=== PATIENT | female | born 2000 | race Caucasian/White ===

== ENCOUNTER 2020-10-21 21:25 | Emergency (ER) | payer OTHER, SELFPAY ==
[2020-10-21 21:38] VITALS: BP 134/84; PULSE 98; RESP 20; TEMP 36.7; O2SAT 100
[2020-10-21] MEDS: metroNIDAZOLE 250 MG TABLET 2000 MG PO (22:41)
[2020-10-21] MEDS: AZITHROMYCIN 250 MG TABLET 1000 MG PO (22:41)
[2020-10-21] MEDS: cefTRIAXone 250 MG VIAL IM (22:41)
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
[2020-10-21 23:00] VITALS: BP 133/82; PULSE 94; RESP 17; O2SAT 98
== END 2020-10-21 23:05 | disposition home or self-care (01) ==
LOC: ANHED 23:00
PROVIDERS: Emergency Provider Emergency Medicine
DX: T74.21XA Adult sexual abuse, confirmed, initial encounter (principal); S20.212A Contusion of left front wall of thorax, initial encounter; S80.11XA Contusion of right lower leg, initial encounter; Y07.03 Male partner, perpetrator of maltreatment and neglect
CPT/HCPCS: 96372; 99285; A9270; J0696

== ENCOUNTER 2022-01-31 09:46 | Outpatient (CLI) | payer OTHER, SELFPAY | END 2022-01-31 09:47 | disposition home or self-care (01) | PROVIDERS: Visit Provider Obstetrics & Gynecology Gynecology | DX: O26.841 Uterine size-date discrepancy, first trimester (principal); Z3A.00 Weeks of gestation of pregnancy not specified | CPT/HCPCS: 36415; 84702 ==

== ENCOUNTER 2022-02-02 10:27 | Outpatient (CLI) | payer OTHER, SELFPAY | END 2022-02-02 10:28 | disposition home or self-care (01) | LOC: ANHLAB 10:29 | PROVIDERS: Visit Provider Obstetrics & Gynecology Gynecology | DX: O26.841 Uterine size-date discrepancy, first trimester (principal); Z3A.00 Weeks of gestation of pregnancy not specified | CPT/HCPCS: 36415; 84702 ==

== ENCOUNTER → 2022-02-14 12:40 | Outpatient (CLI) | payer OTHER, SELFPAY ==
--- NOTE | ~2022-02-14 | US_ITS ---
EXAMINATION: US OB transvaginal DATE: 02/14/2022 13:08 INDICATION: Uncertain dates. . TECHNIQUE: Real-time transvaginal pelvic ultrasound was performed. COMPARISON: None. FINDINGS: The uterus measures 7.9 x 4.9 x 5.3 cm. There is an intrauterine gestational sac. A yolk sac is ident ified. The crown rump length measures 7 mm, which correlates with an estimated gestational age of 6 weeks and 4 day(s) (+/-) 4 day(s). heart motion is identified measuring 136 beats per min izzy (bpm) by M-mode Doppler. There is a 1.2 x 0.7 x 2.0 cm subchorionic hematoma. The right ovary oswald sures 3.9 x 3.0 x 3.2 cm. The left ovary measures 3.1 x 1.9 x 2.5 cm. There is physiologic free fluid in the pelvis. IMPRESSION: 1. Single living intrauterine gestation with estimated date of delivery of 10/06/2022. 2. Small subchorionic hematoma. Reviewed, dictated and finalized at location B. IMPRESSION: 1. Single living intrauterine gestation with estimated date of delivery of 10/06. 2. Small subchorionic hematoma.
== END ==
PROVIDERS: Visit Provider Obstetrics & Gynecology Gynecology
DX: Z36.87 Encounter for antenatal screening for uncertain dates (principal); Z3A.00 Weeks of gestation of pregnancy not specified; O46.90 Antepartum hemorrhage, unspecified, unspecified trimester
CPT/HCPCS: 76817

== ENCOUNTER → 2022-02-27 11:42 | Outpatient (CLI) | payer OTHER, SELFPAY ==
--- NOTE | ~2022-02-27 | US_ITS ---
EXAMINATION: US OB transvaginal DATE: 02/27/2022 12:08 INDICATION: Subchorionic hematoma during first trimester TECHNIQUE: Real-time pelvic transabdominal and transvaginal ultrasound was performed. COMPARISON: 02/14/2022 FINDINGS: The uterus measures 8.9 x 6.2 x 6.7 cm. There is an intrauterine gestational sac. No persi stent subchorionic hematoma is identified. A yolk sac is identified. heart motion is identified measuring 180 beats per minute (bpm) by M-mode Doppler. The crown rump length measures 2.0 cm, which correlates with an estimated gestational age of 8 weeks and 4 day(s) (+/-) 5 day(s). The ovaries are not visualized however no adnexal abnormality is seen. There is no free fluid in the pelvis. IMPRESSION: 1. Live intrauterine with an estimated gestational age of 8 weeks and 4 day(s) (+/-) 5 day( s) and an estimated delivery date of 10/05/2022. 2. No subchorionic hematoma identified. Reviewed, dictated and finalized at location A. IMPRESSION: 1. Live intrauterine with an estimated gestational age of 8 weeks and 4 day(s) (+/-) 5 day(s) and an estimated delivery date of 10/05/2022. 2. No subchorionic hematoma identified.
== END ==
PROVIDERS: PCP Obstetrics & Gynecology Gynecology; Visit Provider Obstetrics & Gynecology Gynecology
DX: O36.8910 Maternal care for other specified fetal problems, first trimester, not applicable or unspecified (principal); Z3A.01 Less than 8 weeks gestation of pregnancy
CPT/HCPCS: 76817

== ENCOUNTER 2022-03-29 17:12 | Outpatient (RCR) | payer OTHER, SELFPAY ==
[2022-03-29 17:54] LABS: Basophils Percent Auto 0.3 % (0.2-1.2); Eosinophils Absolute Auto 0.2 K/mm3 (0-0.3); Eosinophils Percent Auto 1.7 % (0-4.4); Hematocrit 35.9 % (37.0-47.0); Hemoglobin 12.7 g/dL (12.0-15.0); Immature Granulocyte Absolute 0.05 K/mm3 (0.00-0.031); Immature Granulocyte Percent A 0.4 % (0-0.5); Lymphocytes Absolute Auto 3.39 K/mm3 (0.9-3.2); Lymphocytes Percent Auto 26.3 % (18.3-44.2); Mean Corpuscular HGB Conc 35.4 g/dl (32-36); Mean Corpuscular Hemoglobin 30.2 pg (26-34); Mean Corpuscular Volume 85.3 fl (80-100); Mean Platelet Volume 10.3 fl (7.4-10.4); Monocytes Absolute Auto 0.8 K/mm3 (0.1-0.6); Monocytes Percent Auto 6.3 % (2.6-8.5); Neutrophils Absolute Auto 8.4 K/mm3 (1.3-6.7); Platelet Count Result 276 k/mm3 (150-375); Red Blood Count 4.21 M/mm3 (4.2-5.4); Red Cell Distribution Width 13.3 % (11.5-14.5); White Blood Count 12.9 K/mm3 (4.5-10.0)
[2022-03-29 18:45] LABS: HIV 1/2 Ab P24 Ag Result Negative (Negative)
[2022-03-29 19:40] LABS: Hepatitis B Surface Antigen Negative (Negative); Rubella IgG Antibody 52.8 IU/ML
[2022-03-29 19:44] LABS: Hepatitis C Virus Antibody Negative (Negative); Vitamin D 25 Hydroxy 37.4 ng/mL
[2022-03-29 21:11] LABS: Hemoglobin A1C 5.1 % (<5.7)
[2022-03-30 15:20] LABS: Rapid Plasma Reagin Non-Reactive (NonReactive)
[2022-03-31 12:58] LABS: Red Blood Cell Folate 566 ng/mL RBC (>280)
== END 2022-06-27 23:59 | disposition home or self-care (01) ==
LOC: ANHLAB 17:12
PROVIDERS: PCP Obstetrics & Gynecology Gynecology; Visit Provider Advanced Practice Midwife
DX: Z11.4 Encounter for screening for human immunodeficiency virus [HIV] (principal)
CPT/HCPCS: 36415; 82306; 82728; 82747; 83036; 85025; 86592; 86703; 86762; 86803; 86850; 86900; 86901; 87340; G0432

== ENCOUNTER → 2022-05-12 15:39 | Outpatient (CLI) | payer OTHER, SELFPAY ==
--- NOTE | ~2022-05-12 | US_ITS ---
EXAMINATION: US OB /maternal detail DATE: 05/12/2022 16:33 INDICATION: survey TECHNIQUE: Multiple obstetric sonographic images performed. FINDINGS: Comparison to multiple prior studies sequentially, with oldest reviewed study dated 022. There is a single living fetus in vertex presentation. The placenta is anterior without placenta pre via. Amniotic fluid volume is subjectively normal. cardiac activity and movement is noted with a heart rate of 154 beats per minute. The following anatomy was identified as normal: 4 chamber heart 3 vessel cord cord insertion kidneys urinary bladder stomach spine diaphragm ventricles cisterna magna cerebellum The following biometric data were obtained: BPD: 49mm corresponds to gestational age 20 weeks 5 days. Head circumference: 174 mm corresponds to gestational age 20 weeks 0 days. Abdominal circumference: 139 mm corresponds to gestational age 19 weeks 2 days. Femur length: 30 mm corresponds to gestational age 19 weeks 3 days. Head circumference to abdominal circumference ratio: 1.26 (normal range for expected gestational age is 1.08-1.26). Estimated weight: 291 grams +/- 44 grams using Hadlock method, 70.6%. IMPRESSION: 1: Single living intrauterine with an estimated gestational age of 19weeks 0days by initial ultrasound measurements, with an EDC of 10/06/2022 in vertex presentation. 2. Normal survey. Reviewed, dictated and finalized at location A. IMPRESSION: 1: Single living intrauterine with an estimated gestational age of 19 weeks 0days by initial ultrasound measurements, with an EDC of 10/06/2022 in ve rtex presentation. 2. Normal survey.
== END ==
PROVIDERS: PCP Advanced Practice Midwife; Visit Provider Advanced Practice Midwife
DX: Z36.9 Encounter for antenatal screening, unspecified (principal); Z3A.19 19 weeks gestation of pregnancy
CPT/HCPCS: 76805

== ENCOUNTER 2022-09-05 19:00 | Observation (INO) | payer OTHER, SELFPAY ==
[2022-09-05 19:22] VITALS: BP 130/79; PULSE 108
[2022-09-05 19:30] VITALS: BP 120/76; PULSE 107
[2022-09-05 19:39] VITALS: BMI 36.5
--- NOTE | 2022-09-05 19:39 | OBADM ---
This patient, Mabel Alanis, admitted to the OB room OB Post [facility] for observation. Patient/family oriented to hospital policies and general routines including ID bracelet, bed and alarms, visiting hours, pain management, procedures, bathroom and other care routines, personal items, smoking policy, room service/diet, and visiting hours. Patient/Family are encouraged to report perceived risks to care and to ask questions if they do not understand what they are told or what they should do.
[2022-09-05 19:45] VITALS: BP 126/74; PULSE 98
[2022-09-05 20:00] VITALS: BP 126/74; PULSE 98
--- NOTE | 2022-09-05 20:11 | PC.NURSE ---
1927- called Dr. Marino- informed of pt admission for c/o vaginal bleeding that started around 1745 tonight. pt had pink/red blood on pad and when wiping. nothing in vagina within the last 24 hours. no contractions noted on tracing/none felt by pt. order to monitor x 1 hour and if no contractions or further bleeding, pt may d/c home with instructions on when to return to L&D.
[2022-09-05 20:15] VITALS: BP 132/71; PULSE 97
--- NOTE | 2022-09-05 20:16 | PC.NURSE ---
2004- called Dr. Marino- shortly after last call contractions noted on tracing. pt does not feel contractions. cervical exam closed and posterior. no blood noted on exam glove. monitor for full hour from admission and if no change and reactive FHT may d/c home with instructions on when to return to L&D.
--- NOTE | 2022-09-11 09:50 | PM.OBTRLD ---
OB - Triage/Final Diagnosis Visit Information Reason for evaluation: other ( vaginal spotting in ) Comments/Additional reasons for admission: I have assessed the risk for this patient, Mabel Alanis, and determined that she would benefit from observation care.
== END 2022-09-05 20:30 | disposition home or self-care (01) ==
PROVIDERS: Admitting Provider Obstetrics & Gynecology Gynecology; Visit Provider Obstetrics & Gynecology Gynecology
DX: O26.853 Spotting complicating pregnancy, third trimester (principal); Z3A.35 35 weeks gestation of pregnancy
CPT/HCPCS: G0378; G0379

== ENCOUNTER 2022-09-13 10:46 | Outpatient (CLI) | payer OTHER, SELFPAY ==
[2022-09-13 11:57] VITALS: BP 140/75
[2022-09-13 12:00] VITALS: BP 137/78; PULSE 109
[2022-09-13 12:01] LABS: Basophils Absolute Auto 0.1 K/mm3 (0.0-0.1); Basophils Percent Auto 0.5 % (0.2-1.2); Eosinophils Absolute Auto 0.2 K/mm3 (0-0.3); Hematocrit 36.7 % (37.0-47.0); Hemoglobin 12.6 g/dL (12.0-15.0); Immature Granulocyte Absolute 0.26 K/mm3 (0.00-0.031); Immature Granulocyte Percent A 1.7 % (0-0.5); Lymphocytes Absolute Auto 2.46 K/mm3 (0.9-3.2); Lymphocytes Percent Auto 15.8 % (18.3-44.2); Mean Corpuscular HGB Conc 34.3 g/dl (32-36); Mean Corpuscular Volume 90.4 fl (80-100); Mean Platelet Volume 10.2 fl (7.4-10.4); Monocytes Absolute Auto 1.3 K/mm3 (0.1-0.6); Neutrophils Absolute Auto 11.4 K/mm3 (1.3-6.7); Platelet Count Result 294 k/mm3 (150-375); Red Blood Count 4.06 M/mm3 (4.2-5.4); Red Cell Distribution Width 13.5 % (11.5-14.5); White Blood Count 15.6 K/mm3 (4.5-10.0)
[2022-09-13 12:16] VITALS: BP 135/69; PULSE 106
[2022-09-13 12:22] LABS: Alanine Aminotransferase 18 U/L (6-35); Albumin Level 3.8 g/dL (3.5-5.1); Alkaline Phosphatase 115 U/L (38-126); Anion Gap 10 mmol/L (8-16); Aspartate Amino Transferase 20 U/L (14-36); Bilirubin,Total 0.3 mg/dL (0.2-1.3); Blood Urea Nitrogen 4 mg/dL (7-17); Calcium 9.5 mg/dL (8.4-10.2); Carbon Dioxide 21 mmol/L (22-30); Chloride 104 mmol/L (98-107); Creatinine Urine 26.7 mg/dL; Estimated Glomerular Filt Rate > 60; Glucose 83 mg/dL (65-110); Potassium 3.7 mmol/L (3.4-5.0); Sodium 135 mmol/L (137-145); Total Protein Urine Random 14 mg/dL; Ur Ttl Prot Creatinine Ratio 0.52 mg/mg (0-0.20); Uric Acid 3.5 mg/dL (2.5-7.5)
[2022-09-13 12:31] VITALS: BP 134/78; PULSE 104
--- NOTE | 2022-09-13 12:46 | PC.NURSE ---
Called Anabel Pagan with lab results. Verbal orders to discharge patient with 24 hour urine test. Patient discharged with supplies. Patient verbalizes understanding and has no questions at this time.
[2022-09-13 12:47] VITALS: BP 140/75
== END 2022-09-13 12:52 | disposition home or self-care (01) ==
LOC: ANHOBOP 11:34 → ANHLDR 11:35
PROVIDERS: Visit Provider Obstetrics & Gynecology Gynecology
DX: O42.90 Premature rupture of membranes, unspecified as to length of time between rupture and onset of labor, unspecified weeks of gestation (principal); Z3A.00 Weeks of gestation of pregnancy not specified
CPT/HCPCS: 36415; 59025; 80053; 82570; 84112; 84156; 84550; 85025; 99199

== ENCOUNTER 2022-09-14 16:48 | Outpatient (CLI) | payer OTHER, SELFPAY ==
[2022-09-14 19:14] LABS: Total Protein Urine Random 19 mg/dL
[2022-09-14 19:26] LABS: Creatinine 24 Hour Urine 1.4 gm/24 (0.8-1.8); Total Protein Urine 24 Hr 646 mg/24hr (28-141); Total Volume 24 Hour Urine 3400 ml
[2022-09-14 19:31] LABS: Specific Gravity Ur 1.011
== END 2022-09-14 16:49 | disposition home or self-care (01) ==
LOC: ANHOBOP 16:58
PROVIDERS: Advanced Practice Midwife; Visit Provider Obstetrics & Gynecology Gynecology
DX: K62.89 Other specified diseases of anus and rectum (principal); Z01.818 Encounter for other preprocedural examination
CPT/HCPCS: 81050; 82570; 84156

== ENCOUNTER 2022-09-15 09:11 | Outpatient (RCR) | payer OTHER, SELFPAY ==
--- NOTE | ~2022-09-15 | US_ITS ---
EXAMINATION: 1. US OB follow up 2. US umbilical doppler DATE: 09/15/2022 10:38 INDICATION: Preeclampsia. TECHNIQUE: Real-time ultrasound of the pelvis was performed. COMPARISON: Ultrasound 05/12/2022, 02/14/2022 FINDINGS: There is a single living fetus in vertex presentation. The placenta is anterior. heart rate is 158 beats per minute (bpm). The amniotic fluid index is 8.9 cm, which is normal. The following biometric data were obtained: Biparietal diameter (BPD): 9.3 cm; head circumference (HC): 33.4 cm; abdominal circumference (AC): 35 .3 cm; femur length (FL): 7.4 cm. These measurements are concordant. Estimated weight is 3531 g +/- 530 g, which correlates with the 90th percentile when 10/06/22 is used as estimated date of delivery. As single measurements, these parameters are each equal to the following estimated gestational ages: BPD: 37 weeks 5 days. HC: 38 weeks 1 days. AC: 39 weeks 1 days. FL: 37 weeks 5 days. estimated gestational age based solely on measurements from this exam is 38 weeks 1 days +/- 2 weeks 5 days. Umbilical artery pulsed Doppler demonstrates a peak systolic to end-diastolic velocity ratio (S/D rat io) of 1.7 (5th percentile = 1.94, 95th percentile = 3.18). IMPRESSION: 1. Single living fetus in vertex presentation. 2. Estimated weight is 3531 g +/- 530 g, which correlates with the 90th percentile when 2 is used as estimated date of delivery. This date was set by ultrasound on 02/14/2022. 3. Abnormally low umbilical artery S/D ratios. Reviewed, dictated and finalized at location A. [employer] IMPRESSION: 1. Single living fetus in vertex presentation. 2. Estimated weight is 3531 g +/- 530 g, which correlates with the 90th percentile when 10/06/22 is used as estimated date of delivery. This date was se t by ultrasound on 02/14/2022. 3. Abnormally low umbilical artery S/D ratios.
[2022-09-15 10:14] LABS: Hematocrit 35.1 % (37.0-47.0); Hemoglobin 12.1 g/dL (12.0-15.0); Mean Corpuscular HGB Conc 34.5 g/dl (32-36); Mean Corpuscular Hemoglobin 30.2 pg (26-34); Mean Corpuscular Volume 87.5 fl (80-100); Mean Platelet Volume 10.3 fl (7.4-10.4); Platelet Count Result 280 k/mm3 (150-375); Red Blood Count 4.01 M/mm3 (4.2-5.4); Red Cell Distribution Width 13.4 % (11.5-14.5); White Blood Count 13.6 K/mm3 (4.5-10.0)
[2022-09-15 10:16] VITALS: BP 125/83
[2022-09-15 10:21] LABS: Alanine Aminotransferase 18 U/L (6-35); Albumin Level 3.5 g/dL (3.5-5.1); Alkaline Phosphatase 109 U/L (38-126); Anion Gap 11 mmol/L (8-16); Aspartate Amino Transferase 19 U/L (14-36); Bilirubin,Total 0.2 mg/dL (0.2-1.3); Blood Urea Nitrogen 4 mg/dL (7-17); Calcium 9.1 mg/dL (8.4-10.2); Carbon Dioxide 22 mmol/L (22-30); Chloride 104 mmol/L (98-107); Estimated Glomerular Filt Rate > 60; Glucose 111 mg/dL (65-110); Potassium 3.4 mmol/L (3.4-5.0); Sodium 137 mmol/L (137-145)
[2022-09-15 11:35] LABS: Uric Acid 3.4 mg/dL (2.5-7.5)
--- NOTE | 2022-09-15 12:23 | PC.NURSE ---
Discussed labs and ultrasound with Anabel Pagan CNM, she then discussed with Dr. Marino. Pt will be induced, may go home to get her belongings.
== END 2022-09-19 13:50 | disposition home or self-care (01) ==
LOC: ANHOBOP 09:11
PROVIDERS: Advanced Practice Midwife; Visit Provider Obstetrics & Gynecology Gynecology
DX: O14.93 Unspecified pre-eclampsia, third trimester (principal); Z3A.37 37 weeks gestation of pregnancy
CPT/HCPCS: 36415; 59025; 76816; 76820; 80053; 84550; 85027

== ENCOUNTER 2022-09-15 14:00 | Inpatient (IN) | payer OTHER, SELFPAY ==
[2022-09-15] VITALS (13 sets, daily range): BP systolic 104–134; BP diastolic 55–85; PULSE 92–113; TEMP 36.7–37.7; BMI 37.0
--- NOTE | 2022-09-15 14:36 | LDADM ---
This patient, Mabel Alanis, was admitted to Labor/Delivery/Recovery 107 on 09/15/22 at 14:00. Plans for labor, pain management and were discussed with patient. Patient/family oriented to hospital policies and general routines including ID bracelet, bed and alarms, visiting hours, pain management, procedures, bathroom and other care routines, personal items, smoking policy, room service/diet and guest tray routines, security routines, and visiting hours. Patient/Family are encouraged to report perceived risks to care and to ask questions if they do not understand what they are told or what they should do. See OBIX for further documentation.
[2022-09-15] MEDS: miSOPROStol 25 MCG TABLET VAGINAL (15:26)
[2022-09-15 15:31] LABS: Rapid Plasma Reagin Non-Reactive (NonReactive)
[2022-09-15 15:39] LABS: HIV 1/2 Ab P24 Ag Result Negative (Negative)
--- NOTE | 2022-09-15 18:26 | WPDANESEPP ---
Anes - Eval Pre Procedure Procedure: Labor epidural Date/Time: 09/15/22 18:26 Surgeon: Ned Preop Diagnosis: Abdominal pain with contractions Pre Op Diagnosis: Induction of Labor Patient Data Age: 22 Gender: F Height: 1.63 m Weight: 98 kg Last Vital Signs Temp 100 F H 09/15/22 15:00 Pulse 92 09/15/22 17:00 BP 120/75 09/15/22 17:00 O2 Del Method Room Air 09/15/22 14:35 Allergies Allergy/AdvReac Type Severity Reaction Status Date / Time cat dander Allergy Mild Itching Verified 09/13/22 11:59 Home Medications Medication Instructions Recorded Confirmed Type cholecalciferol (vitamin D3) 100 100 mcg PO DAILY 09/06/22 09/15/22 History mcg (4,000 unit) capsule ferrous sulfate 325 mg (65 mg 325 mg PO DAILY 09/06/22 09/15/22 History iron) tablet,delayed release prenat.vits,sina,[id number] 1 tablet PO DAILY 09/06/22 09/15/22 History Laboratory Tests 09/15/22 09/15/22 09/15/22 14:34 14:34 14:34 RPR Non-reactive (NonReactive) HIV 1&2 Ab/P24 Ag 4thGn Negative (Negative) Blood Type B Positive Antibody Screen Negative : gestational age HCG: positive Patient hx anesthesia problems: none Family hx anesthesia problems: none Results Review: All pre-operative results and documents have been reviewed as part of the pre-operative evaluation. [facility] Past Medical History Medical History Migraines Morbid obesity Patient denies significant medical history Pre-eclampsia and not yet delivered Family History Family History Mother Hard of hearing Social History Social History Smoking status: Never smoker Second hand tobacco smoke exposure: No Substance use: never Lack of Transportation: No Lack of Food: Never True Current Housing: I Have Housing Concerned About Future Housing: No Difficulty Paying Gas/Electric Bills: No Difficulty Paying for Meds: No Currently Unemployed: No Education: High School Diploma/GED Difficulty w/ Childcare or Family Care: No Gender identity (if verbalized by the patient): Female Spiritual care concerns: No Exam Day of Procedure 09/15/22 18:26 Patient weight: morbidly obese Airway: Mallampati scale class II
--- NOTE | 2022-09-15 19:52 | WPDOBADMIT ---
Obstetrics - Admit Note Admission Note: record reviewed. No pertinent additions to the history and/or any subsequent changes in the physical findings that are not consistent with the expected course of the were found. Additions to the history and/or subsequent changes in the physical findings follow. Preeclampsia Abnormal umbilical dopplers.
--- NOTE | 2022-09-15 20:52 | PM.OBPNLAB ---
Pain Control Date/time seen: 09/15/22 20:30 Pain control: tolerating well Pelvic Exam Dilation (cm): 3 Effacement (%): 80 station: -3 Amniotic membrane status: Intact Comments: head well appled to cervix Contractions Monitor mode: External Contraction frequency: 3 Contraction duration: 80 Contraction pattern: Irregular Contraction intensity: Moderate Status status: Category l Assessment and Plan Assessment: induction ongoing Comments: Discussed plan of care with Mabel and her family. Discussed option of amniotomy at this time. Given her increasingly painful contractions, plan expectant management over the next 2 hours. Plan SVE around 2230. If no cervical change at that time, will start Pitocin. BPs WNL. Denies sx of preeclampsia. Anticipate vaginal .
--- NOTE | 2022-09-15 21:10 | PM.OBPNLAB ---
Pain Control Date/time seen: 09/15/222029 Pelvic Exam Dilation (cm): 3 Effacement (%): 80 station: -3 Amniotic membrane status: Intact Contractions Monitor mode: External Contraction frequency: 3 Contraction pattern: Irregular Contraction intensity: Moderate Status status: Category l Assessment and Plan Comments: Pt reports speaking with MD earlier in her about a growth on her bottom . Reports MD discussing possibility of clamping and removing at delivery. Examined pt. Pt has a large 4x5cm round mass which appears to originate from the tissue at the anus. This round mass is suspended in a pendulous manner at least 6 cm from the anus. It is pink, smooth, non-tender, soft, and mobile. She reports that she has had this growth for years but it recently increased in size during her . Dr. Duckworth notified of finding. Plan referral to GI .
[2022-09-15] MEDS: LACTATED RINGERS 1,000 ML 125 ML IV CONT (23:31)
[2022-09-16] VITALS (146 sets, daily range): BP systolic 98–136; BP diastolic 48–92; PULSE 18–154; RESP 18; TEMP 36.8–38.1; O2SAT 94–100
[2022-09-16] MEDS: OXYTOCIN 30 UNITS/NS 500 ML 30 UNITS/500 ML BAG IV CONT (02:00)
[2022-09-16] MEDS: LACTATED RINGERS 1,000 ML 125 ML IV CONT ×2 (02:04→06:50)
[2022-09-16] MEDS: ONDANSETRON INJ 4 MG/2 ML VIAL IV PUSH (08:47)
--- NOTE | 2022-09-16 10:31 | PM.OBPNLAB ---
Pain Control Date/time seen: 09/16/22 0840 Pain control: epidural Pelvic Exam Dilation (cm): 4 Effacement (%): 80 station: -2 Amniotic membrane status: Intact Contractions Monitor mode: External Contraction frequency: 3 (2-4) Contraction pattern: Regular Contraction intensity: Moderate Status status: Category l Assessment and Plan Pitocin rate (mU/min): 2 Assessment: induction ongoing Comments: discussed plan of care with Mabel. She is comfortable with her epidural infusing. She has made slight cervical change overnight. Recommend amniotomy, discussed risks and benefits. Mabel is agreeable. AROM performed with return of small amount of clear amniotic fluid, small amount of bloody show present. If no cervical change at the next exam would recommend IUPC. Patient is agreeable. Anticipate vaginal
--- NOTE | 2022-09-16 10:45 | PM.OBPNLAB ---
Pain Control Date/time seen: 09/16/22 10:45 Pain control: tolerating well and epidural Pelvic Exam Dilation (cm): 4 (4.5) Effacement (%): 85 station: -2 Amniotic membrane status: Ruptured Contractions Monitor mode: External Contraction frequency: 3 (2.5-7) Contraction duration: 60 (60-100) Contraction pattern: Irregular Contraction intensity: Moderate Status status: Category l Comments: Baseline 145, moderate variability, accelerations present. Assessment and Plan Assessment: induction ongoing Comments: IUPC placed easily d/t minimal cervical change. Clear amniotic fluid returned in catheter. Plan to up-titrate oxytocin as needed to achieve adequate contraction pattern.
--- NOTE | 2022-09-16 13:28 | PM.OBPNLAB ---
Pain Control Date/time seen: 09/16/22 13:14 Pain control: epidural Pelvic Exam Dilation (cm): 10 Effacement (%): 100 station: +2 Amniotic membrane status: Ruptured Contractions Monitor mode: Internal Contraction pattern: Irregular Status status: Category ll Comments: Recent decels with change to complete dilation. Reassuring tracing overall with moderate variability and accelerations. Assessment and Plan Assessment: active labor Comments: Begin pushing. Pt feeling urge to push.
--- NOTE | 2022-09-16 13:29 | PM.OBDSVD ---
DS: Admitting Diagnosis Discharge Date 09/18/22 Admitting Diagnosis IUP at 37 weeks gestation Preeclampsia DS: Discharge Diagnosis Discharge Diagnosis (1) Preeclampsia: Code(s): O14.90 - Unspecified pre-eclampsia, unspecified trimester Status: Acute Assessment and Plan: BPs WNL. Plan BP check in one week. (2) (normal spontaneous vaginal delivery): Code(s): O80 - Encounter for full-term uncomplicated delivery Status: Acute Assessment and Plan: Healing well. Bleeding WNL. (3) At risk for ineffective : Code(s): Z91.89 - Other specified personal risk factors, not elsewhere classified Status: Acute Assessment and Plan: Pumping and formula feeding. (4) Mass of anus: Code(s): K62.89 - Other specified diseases of anus and rectum Status: Acute Assessment and Plan: GI consult placed OB - DS: Summary Hospital Course Hospital Course: Uncomplicated OB Procedures : Ultrasound OB Procedures Intrapartum: Spontaneous Vag Delivery OB Procedures: : None Peripartum Data Infant Delivery Method: Natural Vaginal Laceration Description: Perineal - 2nd Degree Episiotomy description: None complications: perineal laceration Status at Discharge Functional status at discharge: independent ambulation Overall status at discharge: patient is back to baseline Time Spent with Patient Time attestation: Total time spent providing and/or coordinating discharge services: Exam Narrative: Alert and oriented. Mood is pleasant and cooperative. Urinating without difficulty. Denies passing any large clots. Perineum with minimal edema. Const: General: healthy appearing and no acute distress Orientation/consciousness: patient oriented x3 Limitations: no limitations Resp: Effort & Inspection: normal respiratory effort Auscultation: clear to auscultation bilaterally Cardio: Rate: regular rate GI: Inspection: normal to inspection Rectal Exam: mass (unchanged. Large 5-5 cm, pendulous. pink) Neuro: General: patient oriented x3 Extrem: General: normal to inspection Psych: Appearance: grossly normal Mental Status: mental status grossly normal Affect: normal affect Thought process: Normal thought process present DS: Data Data Completed and Pending Labs on day of discharge: Labs from last 24 hours 09/15/22 09/15/22 09/15/22 14:34 14:34 14:34 RPR Non-reactive HIV 1&2 Ab/P24 Ag 4thGn Negative Blood Type B Positive Antibody Screen Negative Discharge Plan Discharge Attending physician on discharge: Makenzie Marino Consulting providers: Judd Ruano Discharging Clinician: Nely Pagan Anticipated Discharge Date/Time: 09/18/22 00:00 Patient Disposition: Home, Self-Care Activity: may shower Diet: regular Discharge Instructions: Continue taking your vitamin and any other supplements as previously directed (Examples: Iron, Vitamin D). You may take Tylenol 1000mg over the counter every 6 hours as needed for pain. Do not exceed 4000mg of Tylenol daily. You may continue using tucks pads and dermoplast spray if needed for a few more days. For constipation- Miralax powder or dulcolax are safe. Take Colace twice daily and drink lots of fluids. Patient Instructions: Antibiotic Form Stand Alone Forms: General Discharge Information Follow-up/Referrals: Nely Pagan, CNM [Certified Nurse [employer] Head] - (1 week for BP check 6 week post exam) Discharge Medications: New docusate sodium 100 mg Capsule 100 mg PO BID PRN (Reason: Constipation) 90 Days Qty: 60 2RF ibuprofen 600 mg Tablet 600 mg PO Q6H PRN (Reason: Cramping) 14 Days Qty: 30 0RF Continued ferrous sulfate 325 mg (65 mg iron) Tablet,Delayed Release (Dr/Ec) 325 mg PO DAILY #2 Tablet 1 tablet PO DAILY Vitamin D3 100 mcg (4,000 unit) Capsule 100
--- NOTE | 2022-09-16 13:31 | PM.OBPRVD ---
OB - Delivery Note Procedure Delivery date: 09/16/22 Procedure: Events: Preeclampsia w/o severe features Induction method: Per Misoprostol Protocol and Per Pitocin Protocol Delivery augmentation: Rupture of Membranes Delivery monitor: External FHT, External Uterine and Internal Uterine Route of delivery: Episiotomy description: None Laceration Description: Perineal - 2nd Degree Delivery repair: vicryl Specimen: Yes Quantitative Blood Loss (ml): 150 Anesthesia type: Epidural Disposition: Floor Complications: Nuchal cord x1 Narrative: Mabel pushed with contractions and made steady progress to . With pushing, warm compresses were applied to her perineum. She delivered the head gently, there was excellent restitution, a loose nuchal cord was identified. With the next push the anterior shoulder (which was the right shoulder ) delivered. Gentle upwards traction was applied and the posterior shoulder then delivered followed by the remainder of the . The nuchal cord was then reduced and the was placed on the maternal abdomen and care was assumed by the nursery nurse. After 1 minute of life the cord was doubly clamped and cut. There was spontaneous delivery of the placenta. cord blood and cord gases were obtained. A perineal laceration was repaired in the usual fashion. [place] Baby Date of : 09/16/22 Time of : 14:45 Weeks of gestation at delivery: 37 Infant gender: Male Weight (pounds): 7 Weight (ounces): 7 presentation: vertex position: Left Occiput Anterior Placenta delivery description: Spontaneous Cord Vessel Description: 3 Vessels, Nuchal Cord and Delayed Cord Clamping score one minute: 8 score five minutes: 9
[2022-09-16] MEDS: IBUPROFEN 600 MG TABLET PO (16:03)
[2022-09-16] MEDS: WITCH HAZEL 40 PADS 1 PAD TOPICAL (16:04)
[2022-09-16] MEDS: BENZOCAINE 20% AER SPR (*SP) 56 GM CAN 1 SPRAY TOPICAL (16:04)
--- NOTE | 2022-09-16 17:31 | OBPPTRN ---
1712-Patient transferred to post room #286 via wheelchair. Support person present. Oriented to unit, room, information board, rooming in, admission packet and security measures. Patient verbalizes understanding.
[2022-09-17 03:30] VITALS: BP 120/61; PULSE 87; RESP 16; TEMP 37.2; O2SAT 100
[2022-09-17 04:00] VITALS: BP 119/71; PULSE 100; RESP 18; TEMP 37.1; O2SAT 98
[2022-09-17] MEDS: ACETAMINOPHEN 325 MG TABLET 650 MG PO (04:01)
[2022-09-17 04:52] LABS: Hematocrit 30.5 % (37.0-47.0); Hemoglobin 10.7 g/dL (12.0-15.0)
[2022-09-17 08:00] VITALS: BP 115/60; PULSE 89; RESP 16; TEMP 37; O2SAT 99
[2022-09-17] MEDS: IBUPROFEN 600 MG TABLET PO ×2 (08:48→17:14)
[2022-09-17] MEDS: DOCUSATE SODIUM 100 MG CAPSULE PO ×2 (08:49→17:14)
[2022-09-17] MEDS: MULTIVIT/MIN/PREN/FOL AC/IRON TABLET 1 TAB PO (08:49)
--- NOTE | 2022-09-17 10:24 | P.PNOB_ITS ---
OB - PN: Subj Subjective Date/time seen: 09/17/22 0940 Patient comments: pain well controlled baby status: doing well and bottle feeding well feeding status: other (formula feeding. Desires to pump. ) OB - PN: Obj Data Labs CBC & Chem 7: 09/17/22 03:54 Labs: Laboratory Results - last 24 hr 09/17/22 03:54 Hgb 10.7 L Hct 30.5 L OB - PN A/P Assessment and Plan (1) Mass of anus: Code(s): K62.89 - Other specified diseases of anus and rectum Status: Acute Assessment and Plan: GI consult placed. (2) At risk for ineffective : Code(s): Z91.89 - Other specified personal risk factors, not elsewhere classified Status: Acute Assessment and Plan: Discussed pumping recommendations as she desires to pump. Recommend pumping q 2- 3 hours during the day and 1-2 times overnight. consult placed. (3) (normal spontaneous vaginal delivery): Code(s): O80 - Encounter for full-term uncomplicated delivery Status: Acute Assessment and Plan: Laceration approximated. (4) Preeclampsia: Code(s): O14.90 - Unspecified pre-eclampsia, unspecified trimester Status: Acute Assessment and Plan: BPs WNL Plan day: 1 Plan: routine care Time Spent With Patient Time: Total time spent is greater than 50% in coordination of care (as documented) at patient's floor/unit and/or counseling patient: Time with patient: less than 15 minutes Review of Systems Review of Systems: All systems reviewed & are unremarkable except as noted in HPI and below Exam Narrative: Alert and oriented. Mood is pleasant and cooperative. Urinating without difficulty. Denies passing any large clots. Perineum with minimal edema. Const: General: healthy appearing, no acute distress and alert Orientation/consciousness: patient oriented x3 Limitations: no limitations Resp: Effort & Inspection: normal respiratory effort Auscultation: clear to auscultation bilaterally Cardio: Rate: regular rate GI: Inspection: normal to inspection : Other: Fundus firm. 2 below U Neuro: General: patient oriented x3 Extrem: General: normal to inspection Psych: Appearance: grossly normal Mental Status: mental status grossly normal Affect: normal affect Thought process: Normal thought process present
--- NOTE | 2022-09-17 11:07 | PC.NURSE ---
1050-RN met with mother again to encourage pumping; RN assisted mother with set up, use and cleaning of hospital pump; Mother indicated that she will be on WIC and will need to obtain a pump for use at home. RN also instructed mother on how to give breastmilk to baby and proper storing of breast milk. Significant other present and both verbalized understanding.
[2022-09-17 12:17] VITALS: BP 116/78; PULSE 92; RESP 16; TEMP 36.7; O2SAT 98
--- NOTE | 2022-09-17 14:06 | WPDANLDPN2 ---
Anes-Prog Note L&D Date/Time: 09/17/22 14:06 Comfortable throughout: labor and delivery Neuraxial method: epidural Epidural/Spinal procedure site: clean & non-tender Neuro status: Neuro function grossly intact. Cardiovascular status: normal Respiratory status: normal Airway patency: baseline Mental status: baseline Post-Op hydration status: normal Vital Signs: Last Vital Signs Temp 36.7 C 09/17/22 12:17 Pulse 92 09/17/22 12:17 Resp 16 09/17/22 12:17 BP 116/78 09/17/22 12:17 Pulse Ox 98 09/17/22 12:17 O2 Del Method Room Air 09/17/22 08:00 Pain score (VAS): 0 I/O: Intake & Output 09/16/22 09/17/22 09/17/22 23:59 07:59 15:59 Intake Total 480 Output Total 300 Balance -300 480 Post-procedural complaints: none Patient feedback: Patient satisfied with anesthetic care.
[2022-09-17 19:25] VITALS: BP 111/63; PULSE 93; RESP 16; TEMP 37; O2SAT 97
--- NOTE | 2022-09-17 22:00 | PC.NURSE ---
Note: Breast pump provided due to maternal request to exclusively pump and feed expressed breast milk with a bottle. Mother expresses no desire to put to the breast for feedings. Instructions given on cleaning, care, usage, that there should be no pain, pumping schedule for milk production, collection, and storage of human milk. Parents educated regarding supply/demand to promote adequate transition of colostrum to milk. Patient states she was assessed for correct placement, flange size, to pump for comfort and nipple stretching/stimulation for adequate milk production every 3 hours (8 times in 24 hours) at initiation today by floor RN. Mother denies any nipple discomfort at this time. Mother voiced understanding of the education shared along with mom and baby guide for additional resource information. Mother expressed that she does not have an electric breast pump for home use. Mother states she is confident with hand expression and shown how to use the manual converter on the Medela electric pump kit provided for use while here as inpatient. Pt is requesting electric pump for discharge. Will collect appropriate information and provide Medela Pump in Style double electric pump for use upon discharge. Lennie Osuna RN, CLC
[2022-09-17 23:40] VITALS: BP 115/70; PULSE 93; RESP 16; TEMP 36.4; O2SAT 98
[2022-09-18] MEDS: IBUPROFEN 600 MG TABLET PO ×2 (03:30→09:37)
[2022-09-18 08:30] VITALS: BP 124/83; PULSE 94; RESP 16; TEMP 37.4; O2SAT 100
--- NOTE | 2022-09-18 08:58 | PM.OBPNVD ---
OB - PN: Subj Subjective Date/time seen: 09/18/22 0730 Patient comments: no complaints and pain well controlled baby status: doing well [place] feeding status: pumping and storing OB - PN: Obj Data Labs CBC & Chem 7: 09/17/22 03:54 OB - PN A/P Plan Comments: 22y.o. s/p . Doing well. Plan DC home. Breast pumping. GI consult placed for evaluation of anal mass. Bonding well. Pain well controlled. Time Spent With Patient Time: Total time spent is greater than 50% in coordination of care (as documented) at patient's floor/unit and/or counseling patient: Review of Systems Review of Systems: All systems reviewed & are unremarkable except as noted in HPI and below Exam Narrative: Alert and oriented. Mood is pleasant and cooperative. Urinating without difficulty. Denies passing any large clots. Perineum with minimal edema. Const: General: healthy appearing and no acute distress Orientation/consciousness: patient oriented x3 Limitations: no limitations Resp: Effort & Inspection: normal respiratory effort Auscultation: clear to auscultation bilaterally Cardio: Rate: regular rate GI: Inspection: normal to inspection Rectal Exam: mass (unchanged. Large 5-5 cm, pendulous. pink) Neuro: General: patient oriented x3 Extrem: General: normal to inspection Psych: Appearance: grossly normal Mental Status: mental status grossly normal Affect: normal affect Thought process: Normal thought process present
[2022-09-18] MEDS: DOCUSATE SODIUM 100 MG CAPSULE PO (09:37)
[2022-09-18] MEDS: MULTIVIT/MIN/PREN/FOL AC/IRON TABLET 1 TAB PO (09:37)
--- NOTE | 2022-09-18 10:31 | PC.NURSE ---
1022 Called GI Office and spoke w/ Paul, advised her that the pt has a consult with GI pending. Per Paul, Dr. De La Fuente is education reviewer and RN to call GI lab [phone] and advise him of the consult. Spoke w/ Nurys [phone] and she would relay the message to Dr. De La Fuente. Pt advised.
--- NOTE | 2022-09-18 10:44 | PC.NURSE ---
See previous notes. Patient had requested a breast pump, the paperwork was filled out (pt given pink copy), physician and patient signed, face sheet and insurance card copied. Patient given a Medela Breast Pump. Paperwork to be given to Jorge Purcell RN and business development consultant.
--- NOTE | 2022-09-18 10:57 | PC.NURSE ---
1048 Spoke w/ Nurys in GI lab and pt's GI consult/referral is with Dr. Ruano, who will see the pt today around 1pm. Pt advised.
--- NOTE | 2022-09-18 12:00 | PC.NURSE ---
1200 Dr. Ruano here to see pt, recommended that pt call and make appt with general surgeon for evaluation. Will give patient telephone numbers of general surgeons here at [facility].
--- NOTE | 2022-09-18 12:55 | WPDGICN ---
Assessment and Plan Assessment and plan (1) Mass of anus: Code(s): K62.89 - Other specified diseases of anus and rectum Status: Acute Assessment and Plan: ? lipoma, etc will refer to general surgery as outpatient (2) (normal spontaneous vaginal delivery): Code(s): O80 - Encounter for full-term uncomplicated delivery Status: Acute Assessment and Plan: going home today (3) Preeclampsia: Code(s): O14.90 - Unspecified pre-eclampsia, unspecified trimester Status: Acute Assessment and Plan: resolved after delivery GI Consult Note Consult date/time: 09/18/22 12:55 Reason for consult: anal mass HPI: Mabel Alanis is a 22 year old female ? who was admitted with preeclampsia and finally had normal vaginal delivery 09/16. She is going home today and is doing ok. I am called because she noted a mass near her anus for over a year that gradually has gotten bigger about 4-5 cm and is protruding. No change in bowel habits, no abdominal pain, no rectal bleeding. Never had colonoscopy.? Review of Systems Constitutional: Constitutional: Denies chills Eyes: Eyes: Denies blurry vision ENT: Reports Normal hearing present Cardiovascular: Cardiovascular: Denies chest pain Respiratory: Respiratory: Denies chest congestion Gastrointestinal: Gastrointestinal: Denies abdominal pain Genitourinary: Comments: s/p vaginal delivery Musculoskeletal: Musculoskeletal: Denies back pain Integumentary/Breasts: Skin/Breast: Denies rash Neurologic: Denies confusion Psychiatric: Psychiatric: Denies behavioral changes [facility] Past Medical History Medical History Migraines Morbid obesity Patient denies significant medical history Pre-eclampsia and not yet delivered Family History Family History Mother Hard of hearing Social History Social History Smoking status: Never smoker Second hand tobacco smoke exposure: No Substance use: never Lack of Transportation: No Lack of Food: Never True Current Housing: I Have Housing Concerned About Future Housing: No Difficulty Paying Gas/Electric Bills: No Difficulty Paying for Meds: No Currently Unemployed: No Education: High School Diploma/GED Difficulty w/ Childcare or Family Care: No Gender identity (if verbalized by the patient): Female Spiritual care concerns: No Meds Home Medications and Allergies Home Medications Medication Instructions Recorded Confirmed Type cholecalciferol (vitamin D3) 100 100 mcg PO DAILY 09/06/22 09/15/22 History mcg (4,000 unit) capsule ferrous sulfate 325 mg (65 mg 325 mg PO DAILY 09/06/22 09/15/22 History iron) tablet,delayed release prenat.vits,sina,atb-pviw-fkaue 1 tablet PO DAILY 09/06/22 09/15/22 History docusate sodium 100 mg capsule 100 mg PO BID PRN Constipation 90 09/18/22 Rx days #60 caps ibuprofen 600 mg tablet 600 mg PO Q6H PRN Cramping 14 days 09/18/22 Rx #30 tabs Allergies Allergy/AdvReac Type Severity Reaction Status Date / Time cat dander Allergy Mild Itching Verified 09/13/22 11:59 Vital Signs Vital Signs - 24 hr 09/17/22 19:25 09/17/22 23:40 09/18/22 08:30 Temperature 98.6 F 97.6 F 99.3 F Pulse Rate 93 93 94 Respiratory Rate 16 16 16 Blood Pressure 111/63 115/70 124/83 Pulse Oximetry 97 98 100 Exam Narrative: Alert and oriented. Mood is pleasant and cooperative. Perineum with minimal edema. Const: General: healthy appearing and no acute distress Orientation/consciousness: patient oriented x3 Limitations: no limitations HENMT: Face/Nose/Sinus: Normal nares present Eyes: General: appearance normal, both eyes and all related structures Neck: Neck: supple Resp: Effort & Inspection: normal respiratory effort Ausculta
--- NOTE | 2022-09-18 13:27 | PC.NURSE ---
Patient viewed the discharge video Mother & Baby Care, The First Two Weeks . Patient was given the opportunity and encouraged to ask questions. Patient verbalized understanding of information shared and has been given the mother/baby guide for home reference.
[2022-09-19 08:38] VITALS: BP 133/86; PULSE 85; RESP 16; TEMP 37.4; O2SAT 99
== END 2022-09-18 13:27 | disposition home or self-care (01) | DRG 807 ==
LOC: ANHLDR 09-16 13:31 → ANHOB2 09-18 09:04 → ANHLDR 09-20 09:31 → ANHOB2 09-20 09:31
PROVIDERS: Admitting Provider Advanced Practice Midwife; Visit Provider Advanced Practice Midwife
DX: O69.81X0 Labor and delivery complicated by cord around neck, without compression, not applicable or unspecified (principal); Z37.0 Single live birth; O70.1 Second degree perineal laceration during delivery; O14.04 Mild to moderate pre-eclampsia, complicating childbirth; O99.214 Obesity complicating childbirth; E66.01 Morbid (severe) obesity due to excess calories; Z3A.37 37 weeks gestation of pregnancy; K62.89 Other specified diseases of anus and rectum
CPT/HCPCS: 36415; 59025; 76816; 76820; 80053; 81050; 82570; 84112; 84156; 84550; 85014; 85018; 85025; 85027; 86592; 86703; 86850; 86900; 86901; 88307; 99199; A9270; G0432; J2405; J2590; J2795; J7120

== ENCOUNTER 2022-10-04 07:27 | Day surgery (SDC) | payer OTHER, SELFPAY ==
[2022-09-28 15:41] VITALS: BMI 32.4
--- NOTE | 2022-09-29 08:33 | SUR.PREOP ---
PRE-OPERATIVE [address] [address] 1. Report to the Surgery Center Waiting Room, the entrance is the first door on the right after passing through the automatic sliding doors, at time 0700 on date_10/04/22 . OR Time:_0830 . - You and your visitor will be asked to self-screen and do not enter if you have any COVID symptoms. - Two visitors over, age 16 and older, are allowed.? NO children visitors are allowed at this time. - Masking is based on community transmissions levels in [facility].? When the community transmission level is HIGH, masking will be required.? Signage will be posted indicating if masking is required the day of your procedure.? 2. Patients may have clear liquids (water, carbonated beverages, clear teas, apple juice) until 3 hours prior to surgery with a maximum of 20 ounces. - No food from midnight until time of surgery. - Infants may have breast milk until 4 hours before surgery, formula 6 hours prior to surgery. - Children will be allowed to drink immediately following surgery. If applicable, please bring a bottle or sippy cup to assist with drinking. Juice, water, soda, and popsicles are readily available. For infants on formula, please bring formula the day of surgery. Pacifiers are allowed. 3. Take the following medications with a SIP of water the morning of surgery: 1.____None 2. 3. Medications to discontinue per physician order: 1. None date to discontinue: 4. No make-up, nail citizen of [place], hairspray, perfume, deodorant, or body powder the day of surgery. No jewelry (including any body piercings) or valuables the day of surgery. Please take a shower or bath the night before, or the morning of, surgery with an antibacterial soap. Wear comfortable, loose fitting clothing. Children are encouraged to wear pajamas. - Jewelry must be removed prior to entering the operating room. Rings and piercings that are not removed will be cut off. The center will not accept responsibility for valuables. Please leave all valuables, including medications, at home the day of surgery. 5. When going home after surgery, a licensed racing driver must drive you home. NO public transportation without another adult. We recommend someone to stay with you, no alcoholic beverages, driving or important decision making for 24 hours after surgery. For pediatric surgeries, we recommend two adults to accompany a child home. (Only one will be allowed into the building with the patient) 6. If you or anyone in your household have experienced Covid symptoms in the past week, please notify your surgeon or surgery center at phone number below for possible testing. 7. Follow any additional instructions given by your physician. Telephone instructions given to:____Patient - Mabel and asked if any additional questions and then verbalized understanding. Patient advised to call surgeon office or the surgery center at [phone] if any additional questions.
[2022-09-29 08:37] VITALS: BMI 32.4
--- NOTE | 2022-10-02 09:52 | SUR.PREOP ---
NOTIFIED PT OF TIME CHANGE TO 0900. BE HERE AT 0730 ON Sunday10/04/22. PT VERBALIZED UNDERSTANDING.
--- NOTE | 2022-10-04 07:03 | P.PNAN_ITS ---
Anes - Initial Pre Proc Eval Procedure: Operation Date: 10/04/22 09:00 Proposed Procedures p Excision of 4cm Perianal Mass - Ubaldo Bocanegra DO Date/Time: 10/04/22 07:03 Surgeon: Ubaldo Bocanegra DO Pre Op Diagnosis: Mass of anus Patient Data Age: 22 Gender: F Height: 1.63 m Weight: 85.729 kg Allergies Allergy/AdvReac Type Severity Reaction Status Date / Time cat dander Allergy Mild Itching Verified 10/04/22 08:11 Home Medications Medication Instructions Recorded Confirmed Type cholecalciferol (vitamin D3) 100 100 mcg PO DAILY 09/06/22 09/29/22 History mcg (4,000 unit) capsule ferrous sulfate 325 mg (65 mg 325 mg PO DAILY 09/06/22 09/29/22 History iron) tablet,delayed release prenat.vits,sina,wwp-nvdd-vzeas 1 tablet PO DAILY 09/06/22 09/29/22 History Patient hx anesthesia problems: none Family hx anesthesia problems: none Results Review: All pre-operative results and documents have been reviewed as part of the pre- operative evaluation. [facility] Past Medical History Medical History (Updated 10/04/22 @ 08:04 by Panda Montesinos DO) Anemia Migraines Patient denies significant medical history Pre-eclampsia and not yet delivered Family History Family History Mother Hard of hearing Social History Social History Smoking status: Former smoker Second hand tobacco smoke exposure: No Alcohol intake: never Substance use: never Lack of Transportation: No Lack of Food: Never True Current Housing: I Have Housing Concerned About Future Housing: No Difficulty Paying Gas/Electric Bills: No Difficulty Paying for Meds: No Currently Unemployed: No Education: High School Diploma/GED Difficulty w/ Childcare or Family Care: No Living arrangements: with family Additional occupation/education comments: [employer] Gender identity (if verbalized by the patient): Female Spiritual care concerns: No Anes - Eval Final PreProcedure Day of Procedure 10/04/22 07:03 Patient weight: obese Heart: regular rate and rhythm Lungs: clear to auscultation Airway: Mallampati scale class II Neurological: alert and oriented Last oral intake: >/= 8 hours ASA classification: II Emergent: no Anesthetic plan: proceed Anesthesia type and monitoring: general GIVS and standard monitoring Results Review: All pre-operative results and documents have been reviewed as part of the pre- operative evaluation. Informed Consent: The patient's anesthetic plan and its attendant risks and benefits were discussed with the patient/family/POA. Questions were solicited and answers provided to the satisfaction of the patient/family/POA.
[2022-10-04 08:14] VITALS: BP 121/80; PULSE 90; RESP 14; TEMP 37.4; O2SAT 100
[2022-10-04] MEDS: LACTATED RINGERS 1,000 ML 30 ML IV CONT ×2 (08:17→09:39)
--- NOTE | 2022-10-04 08:42 | WPDHPUPDATE1 ---
History and Physical Update Update Date/Time: 10/04/22 08:42 History and Physical has been reviewed, including an updated exam of the patient. There are NO changes in the patient's condition. Risks, benefits, and alternatives have been discussed and questions answered. Patient agrees to proceed with procedure.
[2022-10-04] MEDS: LIDO 1%/EPINEPHRINE 1:100,000 20 ML VIAL 8 ML INFILTRATE (09:18)
--- NOTE | 2022-10-04 09:30 | W.PM.PROC2 ---
Procedure Note - Detailed Date of Procedure 10/04/22 Pre-op Diagnosis Mass of anus Post-op Diagnosis Same Procedure Performed Excision of 4 cm perianal subcutaneous mass Surgeon Ubaldo Bocanegra, DO Anesthesia MAC and Local ( 1% lidocaine with epinephrine) Indications this is a 22-year-old woman who presented with a mass near her anus. This had become larger during her recent . She was found to have a 4 cm pedunculated subcutaneous mass in the left posterior perianal region. Discussions were made with the patient about treatment options and decision was made to proceed with excision of the 4 cm perianal mass. Findings The 4 cm perianal subcutaneous mass was completely excised. This was located in the left posterior region and appeared pedunculated with a soft lipoma or fibroma like consistency. The mass was then opened on the back table and there also appeared to be some opaque obtain an liquid within the mass. This was sent to the lab for pathology. Description of Procedure Procedure as well as risks, benefits, and alternatives were discussed with the patient. Written consent was obtained and placed in chart prior to procedure. Patient was brought back to surgical suite. She was placed supine on operating table. Time-out was done to confirm patient and procedure. IV sedation was then administered by the anesthesia department. She was then repositioned into dorsal lithotomy position. Her perirectal region was prepped and draped in sterile fashion using Betadine prep. 1% lidocaine with epinephrine was infiltrated locally around the mass. An elliptical incision was then made with a 15 blade scalpel around the mass. This was going up near the anal verge but did not appear to be involving the anal canal. Electrocautery was then used to completely excise the mass from its subcutaneous attachments. Hemostasis was achieved with electrocautery. The skin edges were then reapproximated using 3-0 Vicryl simple interrupted sutures. Xeroform gauze was then applied followed by fluff gauze and mesh underwear. Patient was then awakened from anesthesia and transferred to recovery. Estimated Blood Loss 5 Pathology Yes ( 4 cm left posterior perianal mass) Complications No immediate complications Condition Stable Disposition Same day [facility] Billing Surgery - Charge Forward: Surgery Billing
[2022-10-04 09:31] VITALS: BP 125/76; PULSE 70; RESP 16; O2SAT 96
[2022-10-04 09:46] VITALS: BP 125/85; PULSE 64; RESP 16; O2SAT 98
--- NOTE | 2022-10-04 09:59 | WPDANESPN ---
Anes - Prog Note Post-Op Date/Time: 10/04/22 09:59 Cardiovascular status: normal Respiratory status: normal Airway patency: baseline Mental status: baseline Post-Op hydration status: normal Vital Signs: Last Vital Signs Temp 37.4 C 10/04/22 08:14 Pulse 64 10/04/22 09:46 Resp 16 10/04/22 09:46 BP 125/85 10/04/22 09:46 Pulse Ox 98 10/04/22 09:46 O2 Del Method Room Air 10/04/22 09:46 Pain Score (VAS): 0 I/O: Intake & Output 10/03/22 10/04/22 10/04/22 23:59 07:59 15:59 Intake Total 400 Balance 400 Post-procedural complaints: none Patient Feedback: Patient satisfied with anesthetic care. Other Findings: Patient vital signs back to baseline. Patient denies nausea and vomiting. Patient's pain under control. Patient OK for discharge.
== END 2022-10-04 10:10 | disposition home or self-care (01) ==
PROVIDERS: Visit Provider Surgery
PROC: (CPT 46922; principal; 2022-10-04 09:00)
DX: K62.89 Other specified diseases of anus and rectum (principal)
CPT/HCPCS: 46922

== ENCOUNTER 2022-10-04 08:00 | Outpatient (NON) | payer OTHER, SELFPAY | END 2022-10-04 08:01 | disposition home or self-care (01) | LOC: ANHLAB 10-05 08:05 | PROVIDERS: Visit Provider Surgery | DX: K62.89 Other specified diseases of anus and rectum (principal) | CPT/HCPCS: 88304 ==

== ENCOUNTER 2023-07-18 14:30 | Outpatient (CLI) | payer OTHER, SELFPAY ==
--- NOTE | ~2023-07-18 | US_ITS ---
EXAMINATION: US OB transvaginal DATE: 07/18/2023 15:06 INDICATION: First trimester dating and viability assessment TECHNIQUE: Real-time pelvic transabdominal and transvaginal ultrasound was performed. COMPARISON: None. FINDINGS: The uterus measures 8.6 x 4.8 x 5.8 cm. There is an intrauterine gestational sac. he art motion is not yet identified. The crown rump length measures 2 mm, which correlates with an estimated gestational age of 5 weeks and 5 day(s) (+/-) 4 day(s). The right ovary measures 3.7 x 1.7 x 2.5 cm. The left ovary measures 2 x 2.7 x 2.3 cm. There is jackie l vascular flow in the ovaries. There is no free fluid in the pelvis. IMPRESSION: 1. Early intrauterine with an estimated gestational age of 5 weeks and 5 day(s) (+/-) 4 day (s) and an estimated delivery date of 03/14/2024. No visible cardiac activity is identified whic h may be due to early gestation. Reviewed, dictated and finalized at location B. IMPRESSION: 1. Early intrauterine with an estimated gestational age of 5 weeks an d 5 day(s) (+/-) 4 day(s) and an estimated delivery date of 03/14/2024. No visib le cardiac activity is identified which may be due to early gestation.
== END 2023-07-18 14:31 ==
LOC: MICIMG 14:32
PROVIDERS: PCP Advanced Practice Midwife; Visit Provider Advanced Practice Midwife
DX: Z32.01 Encounter for pregnancy test, result positive (principal); Z3A.01 Less than 8 weeks gestation of pregnancy
CPT/HCPCS: 76817

== ENCOUNTER 2023-07-30 11:55 | Outpatient (CLI) | payer OTHER, SELFPAY ==
--- NOTE | ~2023-07-30 | US_ITS ---
EXAMINATION: US OB transvaginal DATE: 07/30/2023 12:17 INDICATION: Threatened during first trimester of TECHNIQUE: Real-time pelvic ultrasound utilizing transvaginal probe was performed. The interpreting r adiologist was not present for the study. COMPARISON: None. FINDINGS: The uterus measures 9.6 x 5.4 x 5.9 cm. There is an intrauterine gestational sac. A yolk sac and fet al pole are identified. The crown rump length measures 7 mm, which correlates with an estimated gesta tional age of 6 weeks and 4 days. heart motion is identified measuring 142 beats per minute (bp m) by M-mode Doppler. 8 x 3 mm crescentic hypoechoic subchorionic hematoma. The right and left ovaries are not visualized. There is no free fluid in the pelvis. IMPRESSION: 1. Single living fetus with heart rate of 142 bpm. 2. Gestational age by ultrasound of 6 weeks 4 day(s) +/- 4 day(s) with ultrasound estimated date of delivery (ERIC) of 03/20/2024. 3. 8 x 3 mm subchorionic hematoma. Reviewed, dictated and finalized at location A. IMPRESSION: 1. Single living fetus with heart rate of 142 bpm. 2. Gestational age by ultrasound of 6 weeks 4 day(s) +/- 4 day(s) with ultraso und estimated date of delivery (ERIC) of 03/20/2024. 3. 8 x 3 mm subchorionic hematoma.
== END 2023-07-30 11:56 ==
LOC: MICIMG 11:57
PROVIDERS: PCP Advanced Practice Midwife; Visit Provider Obstetrics & Gynecology
DX: O20.0 Threatened abortion (principal); Z3A.01 Less than 8 weeks gestation of pregnancy
CPT/HCPCS: 76817

== ENCOUNTER 2023-08-07 14:46 | Outpatient (CLI) | payer OTHER, SELFPAY ==
--- NOTE | ~2023-08-07 | US_ITS ---
EXAMINATION: US OB transvaginal DATE: 08/07/2023 15:39 INDICATION: First trimester dating and viability assessment, subchorionic hematoma follow-u p TECHNIQUE: Real-time pelvic transabdominal and transvaginal ultrasound was performed. COMPARISON: 07/30/2023 FINDINGS: The uterus measures 9.9 x 5.4 x 5.5 cm. There is an intrauterine gestational sac. No persis tent subchorionic hematoma is identified. A yolk sac is identified. heart motion is identified measuring 159 beats per minute (bpm) by M-mode Doppler. The crown rump length measures 15 mm, w hich correlates with an estimated gestational age of 7 weeks and 6 day(s) (+/-) 5 day(s). The ovaries are not visualized however no adnexal abnormality is seen. There is no free fluid in the pelvis. IMPRESSION: 1. Live intrauterine with an estimated gestational age of 7 weeks and 6 day(s) (+/-) 5 day( s) and an estimated delivery date of 03/19/2024. Reviewed, dictated and finalized at location F. IMPRESSION: 1. Live intrauterine with an estimated gestational age of 7 weeks and 6 day(s) (+/-) 5 day(s) and an estimated delivery date of 03/19/2024.
== END 2023-08-07 14:47 ==
LOC: MICIMG 14:47
PROVIDERS: PCP Advanced Practice Midwife; Visit Provider Obstetrics & Gynecology
DX: O36.8990 Maternal care for other specified fetal problems, unspecified trimester, not applicable or unspecified (principal); Z3A.01 Less than 8 weeks gestation of pregnancy
CPT/HCPCS: 76817

== ENCOUNTER 2023-08-08 16:33 | Outpatient (CLI) | payer OTHER, SELFPAY ==
[2023-08-08 17:19] LABS: Basophils Absolute Auto 0.1 K/mm3 (0.0-0.1); Basophils Percent Auto 0.4 % (0.2-1.2); Eosinophils Absolute Auto 0.3 K/mm3 (0-0.3); Eosinophils Percent Auto 2.3 % (0-4.4); Hematocrit 39.2 % (37.0-47.0); Hemoglobin 13.2 g/dL (12.0-15.0); Immature Granulocyte Absolute 0.09 K/mm3 (0.00-0.031); Immature Granulocyte Percent A 0.6 % (0-0.5); Lymphocytes Absolute Auto 3.96 K/mm3 (0.9-3.2); Lymphocytes Percent Auto 26.7 % (18.3-44.2); Mean Corpuscular HGB Conc 33.7 g/dl (32-36); Mean Corpuscular Hemoglobin 29.1 pg (26-34); Mean Corpuscular Volume 86.5 fl (80-100); Mean Platelet Volume 9.9 fl (7.4-10.4); Monocytes Absolute Auto 0.9 K/mm3 (0.1-0.6); Monocytes Percent Auto 5.9 % (2.6-8.5); Neutrophils Absolute Auto 9.5 K/mm3 (1.3-6.7); Neutrophils Percent Auto 64.1 % (45.5-73.1); Platelet Count Result 354 k/mm3 (150-375); Red Blood Count 4.53 M/mm3 (4.2-5.4); Red Cell Distribution Width 13.4 % (11.5-14.5); White Blood Count 14.8 K/mm3 (4.5-10.0)
[2023-08-08 18:24] LABS: HIV 1/2 Ab P24 Ag Result Negative (Negative)
[2023-08-08 19:00] LABS: Free T4 Free Thyroxine 0.96 ng/mL (0.78-2.19)
[2023-08-08 20:14] LABS: Hepatitis B Surface Antigen Negative (Negative); Rubella IgG Antibody 73.7 IU/ML
[2023-08-08 20:30] LABS: Hepatitis C Virus Antibody Negative (Negative)
[2023-08-09 07:24] LABS: Rapid Plasma Reagin Non-Reactive (NonReactive)
== END 2023-08-08 16:34 | disposition home or self-care (01) ==
LOC: ANHLAB 16:35
PROVIDERS: Visit Provider Advanced Practice Midwife
DX: Z34.90 Encounter for supervision of normal pregnancy, unspecified, unspecified trimester (principal); Z3A.00 Weeks of gestation of pregnancy not specified
CPT/HCPCS: 36415; 83036; 84439; 84443; 85025; 86592; 86703; 86762; 86803; 86850; 86900; 86901; 87340; G0432

== ENCOUNTER 2023-08-28 12:07 | Outpatient (CLI) | payer OTHER, SELFPAY ==
[2023-09-06 19:53] LABS: Abnormal MSS NO; Abnormal US NO; Advanced Maternal Age NO; Gestational Age in Days 5; Gestational Age in Weeks 10; Microdeletion Not detected; Number of Fetuses 1; Personal/Fam history YES; Sex Chromosome No aneuploidy; Trisomy 13 Negative
== END 2023-08-28 12:08 | disposition home or self-care (01) ==
PROVIDERS: Visit Provider Advanced Practice Midwife
DX: Z34.90 Encounter for supervision of normal pregnancy, unspecified, unspecified trimester (principal); Z3A.00 Weeks of gestation of pregnancy not specified
CPT/HCPCS: 81420

== ENCOUNTER 2023-09-07 14:25 | Outpatient (CLI) | payer OTHER, SELFPAY ==
--- NOTE | ~2023-09-07 | US_ITS ---
EXAMINATION: US OB <= 14 weeks fetus DATE: 09/07/2023 15:00 INDICATION: Encounter for superficial normal first trimester TECHNIQUE: Real-time pelvic transabdominal and transvaginal ultrasound was performed. COMPARISON: 08/07/2023 FINDINGS: The uterus measures 12.7 x 7.1 x 7.7 cm. There is an intrauterine gestational sac. A yolk s ac is identified. heart motion is identified measuring 171 beats per minute (bpm) by M-mode Dop pler. The crown rump length measures 6.3 cm, which correlates with an estimated gestational age of 12 weeks and 5 day(s) (+/-) 8 day(s). The ovaries are not visualized however no adnexal abnormality is seen. There is no free fluid in the pelvis. IMPRESSION: 1. Live intrauterine with an estimated gestational age of 12 weeks and 5 day(s) (+/-) 8 day (s) and an estimated delivery date of 03/16/2024. Reviewed, dictated and finalized at location B. E ARCHIVIST IMPRESSION: 1. Live intrauterine with an estimated gestational age of 12 weeks an d 5 day(s) (+/-) 8 day(s) and an estimated delivery date of 03/16/2024.
== END 2023-09-07 14:26 ==
PROVIDERS: PCP Advanced Practice Midwife; Visit Provider Advanced Practice Midwife
DX: Z34.91 Encounter for supervision of normal pregnancy, unspecified, first trimester (principal); Z3A.12 12 weeks gestation of pregnancy
CPT/HCPCS: 76801

== ENCOUNTER 2023-09-12 09:19 | Outpatient (CLI) | payer OTHER, SELFPAY | END 2023-09-12 09:20 | disposition home or self-care (01) | LOC: ANHLAB 09:21 | PROVIDERS: Visit Provider Obstetrics & Gynecology | DX: Z34.90 Encounter for supervision of normal pregnancy, unspecified, unspecified trimester (principal) | CPT/HCPCS: 36415; 86644; 86747; 86787 ==

== ENCOUNTER 2023-10-08 15:49 | Emergency (ER) | payer OTHER, SELFPAY ==
[2023-10-08 16:14] VITALS: BP 123/71; PULSE 116; RESP 16; TEMP 37.2; O2SAT 100
--- NOTE | 2023-10-08 16:32 | ED.URI ---
HPI - URI/Sore Throat General Chief Complaint: Upper Respiratory Infection Stated Complaint: Covid symptoms Source: patient, RN notes reviewed and old records reviewed Mode of arrival: ambulatory Limitations: no limitations History of Present Illness HPI Narrative: 23-year-old female presents with complaints of sore throat, nausea vomiting, headache, myalgias that started this a.m. Patient is 4 months . Patient denies shortness of breath, dizziness, weakness, chest pain. MD elicited complaint: sore throat Onset (ago): day(s) (1) Related Data Home Medications Medication Instructions Recorded Confirmed vitamins-iron fumarate 65 1 tablet PO DAILY 09/12/23 09/12/23 mg iron-folic acid 1 mg tablet Allergies Allergy/AdvReac Type Severity Reaction Status Date / Time cat dander Allergy Mild Itching Verified 09/12/23 08:16 Review of Systems Constitutional: Constitutional: Reports as per HPI, Reports body ache(s), Reports fatigue and Reports headache(s) Eyes: Eyes: Reports no additional eye complaints ENT: Reports as per HPI and Reports sore throat Cardiovascular: Cardiovascular: Reports no additional cardiovascular complaints Respiratory: Respiratory: Reports no additional respiratory complaints Neurologic: Reports system reviewed and no additional complaints, except as documented [facility] Past Medical History Medical History Anemia Migraines Patient denies significant medical history Pre-eclampsia and not yet delivered Surgical History Surgical History History of excision of mass excision 4 cm perianal subcutaneous mass 10/04/2022 History of tonsillectomy [place] teeth removed Family History Family History Mother Hard of hearing Grandparent Lung cancer maternal grandmother Social History Social History Smoking status: Former smoker Tobacco type: cigarettes Second hand tobacco smoke exposure: No Smoking end date: 07/17/23 Alcohol intake: never Substance use: never Substance use type: does not use Lack of Transportation: No Lack of Food: Never True Current Housing: I Have Housing Concerned About Future Housing: No Difficulty Paying Gas/Electric Bills: No Difficulty Paying for Meds: No Currently Unemployed: No Education: High School Diploma/GED Difficulty w/ Childcare or Family Care: No Living arrangements: with family Additional living arrangements comments: Engaged Occupation/Education: occupation Additional occupation/education comments: [employer] at [employer] Gender identity (if verbalized by the patient): Female Sexual Orientation (if Verbalized by the Patient): Straight or Heterosexual Spiritual care concerns: No Comments At the time of my signature, I reviewed and agree with the nursing past medical, surgical, social, and family history. There is no relevant family history pertinent to the patient complaint. Exam Const: General: cooperative, healthy appearing, no acute distress and well nourished Nutritional Appearance: well nourished Orientation/consciousness: patient oriented x3 Limitations: no limitations HENMT: Head: normal to inspection and normocephalic Ears: external ears normal, TM's normal bilaterally, mastoids normal and Abnormal EAC present Face/Nose/Sinus: normal facial exam Face and sinus: normal facial exam Mouth: Yes Normal oral and palatal mucosa present, Yes oropharynx normal and Yes moist mucous membranes Throat: uvula midline, abnormal tonsil bilateral erythema, posterior oropharynx abnormal erythema and no uvular edema Eyes: General: appearance normal, both eyes and all related structures Sclera: sclerae normal Pupils: Equal, round and reactive pupils prese
== END 2023-10-08 16:38 | disposition home or self-care (01) ==
PROVIDERS: Emergency Provider Registered Nurse; PCP Obstetrics & Gynecology
DX: O99.519 Diseases of the respiratory system complicating pregnancy, unspecified trimester (principal); Z3A.00 Weeks of gestation of pregnancy not specified; J02.0 Streptococcal pharyngitis; Z87.891 Personal history of nicotine dependence
CPT/HCPCS: 87426; 87804; 87880; 99213; C9803; G0463

== ENCOUNTER 2023-10-31 15:35 | Outpatient (CLI) | payer OTHER, SELFPAY ==
--- NOTE | ~2023-10-31 | US_ITS ---
EXAMINATION: US OB /maternal detail DATE: 10/31/2023 16:41 INDICATION: Encounter for supervision of normal . TECHNIQUE: Real-time ultrasound of the pelvis was performed. COMPARISON: Ultrasound 09/07/2023 FINDINGS: There is a single living fetus in variable presentation. The placenta is posterior, 6.4 cm from the cervix. The cervical length is 3.2 cm on transabdominal imaging, which is normal. heart rate is 163 beats per minute (bpm). The amniotic fluid volume is subjectively normal. The following biometric data were obtained: Biparietal diameter (BPD): 4.6 cm; head circumference (HC): 17.4 cm; abdominal circumference (AC): 15 .0 cm; femur length (FL): 3.4 cm. These measurements are concordant. Estimated weight is 347 g +/- 52 g, which correlates with the 73rd percentile when 03/20/24 is u sed as estimated date of delivery. As single measurements, these parameters are each equal to the following estimated gestational ages: BPD: 19 weeks 6 days. HC: 20 weeks 0 days. AC: 20 weeks 2 days. FL: 20 weeks 4 days. estimated gestational age based solely on measurements from this exam is 20 weeks 1 days +/- 1 weeks 3 days. The cerebral ventricles, cerebellum, cisterna magna, nuchal fold, lip, and visualized portions of the spine are normal. The heart is normal. The diaphragm, stomach, kidneys, and bladder are normal. Ther e are two umbilical arteries to yield a 3-vessel cord. The cord insertion is normal. IMPRESSION: 1. Single living fetus in variable presentation. 2. Estimated weight is 347 g +/- 52 g, which correlates with the 73rd percentile when 03/20/24 is used as estimated date of delivery. This date was set by ultrasound on 07/18/2023. 3. Normal anatomic survey. Reviewed, dictated and finalized at location E. ASSISTANT MANAGER IMPRESSION: 1. Single living fetus in variable presentation. 2. Estimated weight is 347 g +/- 52 g, which correlates with the 73rd pe rcentile when 03/20/24 is used as estimated date of delivery. This date was set by ultrasound on 07/18/2023. 3. Normal anatomic survey.
== END 2023-10-31 15:36 ==
PROVIDERS: PCP Obstetrics & Gynecology; Visit Provider Obstetrics & Gynecology
DX: Z34.92 Encounter for supervision of normal pregnancy, unspecified, second trimester (principal); Z3A.20 20 weeks gestation of pregnancy
CPT/HCPCS: 76805

== ENCOUNTER 2023-12-24 07:18 | Outpatient (CLI) | payer OTHER, SELFPAY ==
[2023-12-24 09:05] LABS: Basophils Absolute Auto 0.1 K/mm3 (0.0-0.1); Basophils Percent Auto 0.4 % (0.2-1.2); Eosinophils Absolute Auto 0.1 K/mm3 (0-0.3); Eosinophils Percent Auto 0.9 % (0-4.4); Hematocrit 33.7 % (37.0-47.0); Hemoglobin 11.2 g/dL (12.0-15.0); Immature Granulocyte Absolute 0.17 K/mm3 (0.00-0.031); Immature Granulocyte Percent A 1.2 % (0-0.5); Lymphocytes Absolute Auto 2.76 K/mm3 (0.9-3.2); Lymphocytes Percent Auto 19.7 % (18.3-44.2); Mean Corpuscular HGB Conc 33.2 g/dl (32-36); Mean Corpuscular Hemoglobin 29.4 pg (26-34); Mean Corpuscular Volume 88.5 fl (80-100); Mean Platelet Volume 10.6 fl (7.4-10.4); Monocytes Absolute Auto 0.7 K/mm3 (0.1-0.6); Monocytes Percent Auto 4.7 % (2.6-8.5); Neutrophils Absolute Auto 10.2 K/mm3 (1.3-6.7); Neutrophils Percent Auto 73.1 % (45.5-73.1); Platelet Count Result 295 k/mm3 (150-375); Red Blood Count 3.81 M/mm3 (4.2-5.4); Red Cell Distribution Width 13.5 % (11.5-14.5)
[2023-12-24 09:15] LABS: Glucose 1 Hour PP 50gm Dose 111 mg/dL
[2023-12-24 10:22] LABS: HIV 1/2 Ab P24 Ag Result Negative (Negative)
== END 2023-12-24 07:19 | disposition home or self-care (01) ==
LOC: ANHLAB 07:20
PROVIDERS: PCP Obstetrics & Gynecology; Visit Provider Obstetrics & Gynecology
DX: Z34.90 Encounter for supervision of normal pregnancy, unspecified, unspecified trimester (principal); Z3A.00 Weeks of gestation of pregnancy not specified
CPT/HCPCS: 36415; 82947; 85025; 86703; G0432

== ENCOUNTER 2024-01-30 17:45 | Observation (INO) | payer OTHER, SELFPAY ==
[2024-01-30 18:06] VITALS: BP 126/78; PULSE 99
[2024-01-30 18:15] VITALS: BP 123/71; PULSE 101
[2024-01-30 18:30] VITALS: BP 123/73; PULSE 98
[2024-01-30 19:26] LABS: Appearance Urine Cloudy (Clear); Bacteria Urine None Seen /hpf; Bilirubin Urine Negative (Negative); Blood Urine Negative (Negative); Color Urine Yellow (Yellow); Glucose Urine UA Negative (Negative); Ketones Urine Negative (Negative); Leukocyte Esterase Ur Trace LEU/UL (Negative); Nitrate Urine Negative (Negative); Non Pathogenic Casts 0-2; Protein Urine Negative (Negative); RBC Urine 0-2 /hpf (0-2); Specific Grav Ur 1.009 (1.001-1.035); Squamous Epithelial Cell Urine None Seen /hpf (Few); Urobilinogen Urine 0.2 mg/dL (<2.0); WBC Urine 0-5 /hpf (0-3); pH Urine 6.5 (5.0-9.0)
[2024-01-30 19:29] LABS: Add Urine Microscopic? YES
--- NOTE | 2024-01-30 19:46 | ADMGEN ---
This patient, Mabel Alanis, was admitted to Labor/Delivery/Recovery 119-00. Patient/family oriented to hospital policies and general routines including ID bracelet, bed and alarms, visiting hours, pain management, procedures, bathroom and other care routines, personal items, smoking policy, room service/diet, and visiting hours. Information on how to activate the Rapid Response Team has been discussed. Patient/Family are encouraged to report perceived risks to care and to ask questions if they do not understand what they are told or what they should do.
[2024-01-30 19:55] VITALS: BMI 37.0
--- NOTE | 2024-02-14 13:55 | P.PNOB_ITS ---
OB - Triage/Final Diagnosis Visit Information Comments/Additional reasons for admission: I have assessed the risk for this patient, Mabel Alanis, and determined that she would benefit from observation care. Evaluation Laboratory results: Laboratory Tests 01/30/24 19:00 Urine Color Yellow Urine Appearance Cloudy H Urine pH 6.5 Ur Specific [place] 1.009 Urine Protein Negative Urine Glucose (UA) Negative Urine Ketones Negative Ur Blood (Man) Negative Urine Nitrate Negative Urine Bilirubin Negative Urine Urobilinogen 0.2 Leukocyte Esterase Rfl Trace H Urine RBC 0-2 Urine WBC 0-5 Ur Squamous Epith Cells None seen Urine Bacteria None seen Urine Casts 0-2 Final Diagnosis (1) Uterine contractions during : Code(s): O47.9 - False labor, unspecified Status: Acute
== END 2024-01-30 20:07 ==
PROVIDERS: Admitting Provider Obstetrics & Gynecology; Visit Provider Obstetrics & Gynecology
DX: O47.9 False labor, unspecified (principal); Z3A.33 33 weeks gestation of pregnancy
CPT/HCPCS: 81001; G0378; G0379

== ENCOUNTER 2024-02-05 06:57 | Observation (INO) | payer OTHER, SELFPAY ==
--- NOTE | ~2024-02-05 | US_ITS ---
EXAMINATION: US OB limited w BPP DATE: 02/05/2024 08:22 INDICATION: Vaginal bleeding during third trimester of . Assess amniotic fluid index and maicol centa. TECHNIQUE: Real-time pelvic ultrasound was performed. The interpreting radiologist was not present fo r the study. COMPARISON: None. FINDINGS: There is a single living fetus in vertex presentation. The normal placenta is posterior fundal. Feta l heart rate is 150 beats per minute (bpm). Normal amniotic fluid index of 14.0 cm (5th%-95%: 8.1-24. 8 cm at 34 weeks estimated gestational age) . Biophysical profile performed by the technologist: breathing (30 sec sustained breathing in 30 minutes): 2 out of 2 movement (3 gross body movements in 30 minutes): 2 out of 2 tone (one episode of cfnwfis-dyzalpjva-kpdbhhg limb movement): 2 out of 2 Amniotic fluid pocket (2 cm): 2 out of 2 Total score: 8 out of 8 IMPRESSION: 1. Single living fetus in vertex presentation with heart rate of 150 bpm. 2. Biophysical profile 8 out of 8. 3. Normal amniotic fluid index of 14.7 cm. Reviewed, dictated and finalized at location B.
[2024-02-05 07:30] VITALS: BP 146/67; PULSE 110
[2024-02-05 07:45] VITALS: BP 123/87; PULSE 107
[2024-02-05 07:50] LABS: Basophils Percent Auto 0.3 % (0.2-1.2); Eosinophils Absolute Auto 0.3 K/mm3 (0-0.3); Eosinophils Percent Auto 1.9 % (0-4.4); Hematocrit 36.6 % (37.0-47.0); Hemoglobin 12.3 g/dL (12.0-15.0); Immature Granulocyte Percent A 1.3 % (0-0.5); Lymphocytes Absolute Auto 3.08 K/mm3 (0.9-3.2); Lymphocytes Percent Auto 20.4 % (18.3-44.2); Mean Corpuscular HGB Conc 33.6 g/dl (32-36); Mean Corpuscular Hemoglobin 29.6 pg (26-34); Mean Platelet Volume 10.3 fl (7.4-10.4); Monocytes Absolute Auto 0.9 K/mm3 (0.1-0.6); Monocytes Percent Auto 6.2 % (2.6-8.5); Neutrophils Absolute Auto 10.5 K/mm3 (1.3-6.7); Neutrophils Percent Auto 69.9 % (45.5-73.1); Platelet Count Result 263 k/mm3 (150-375); Red Blood Count 4.16 M/mm3 (4.2-5.4); Red Cell Distribution Width 13.8 % (11.5-14.5); White Blood Count 15.1 K/mm3 (4.5-10.0)
--- NOTE | 2024-02-05 08:04 | PC.NURSE ---
Patient reported to OB units with complaint of bright red vaginal bleeding with clots noted overnight. Pictures from her phone show 50% of (3) 4X4 gauze pads saturated with bright red blood with a small clot. Clot appears to be small than a dime. She states that she had a recent fall on Sunday and was seen here in OB that day. She reports that she fell onto her knees. Orders received from Dr. Jean.
[2024-02-05 08:09] VITALS: BP 123/87; PULSE 107; RESP 20; BMI 39.1
--- NOTE | 2024-02-05 08:10 | ADMGEN ---
This patient, Mabel Alanis, was admitted to OB Post 116-00. Patient/family oriented to hospital policies and general routines including ID bracelet, bed and alarms, visiting hours, pain management, procedures, bathroom and other care routines, personal items, smoking policy, room service/diet, and visiting hours. Information on how to activate the Rapid Response Team has been discussed. Patient/Family are encouraged to report perceived risks to care and to ask questions if they do not understand what they are told or what they should do.
[2024-02-05 08:21] LABS: Prothrombin Time 13.9 Seconds (11.1-14.7)
[2024-02-05 08:22] LABS: Partial Thromboplastin Time 26.7 Seconds (22.3-36.8)
--- NOTE | 2024-02-05 12:38 | PM.OBTRLD ---
OB - Triage/Final Diagnosis Visit Information Comments/Additional reasons for admission: I have assessed the risk for this patient, Mabel Alanis, and determined that she would benefit from observation care. Evaluation Laboratory results: Laboratory Tests 02/05/24 07:30 WBC 15.1 H RBC 4.16 L Hgb 12.3 Hct 36.6 L MCV 88.0 MCH 29.6 MCHC 33.6 RDW 13.8 Plt Count 263 MPV 10.3 Immature Gran % (Auto) 1.3 H Neut % (Auto) 69.9 Lymph % (Auto) 20.4 [place] % (Auto) 6.2 Eos % (Auto) 1.9 Baso % (Auto) 0.3 Lymph # (Auto) 3.08 [place] # (Auto) 0.9 H Eos # (Auto) 0.3 Baso # (Auto) 0.0 Abs Immat Gran (auto) 0.20 H Absolute Neuts (auto) 10.5 H Absolute Nucleated RBC 0.000 Nucleated RBC % 0.0 PT 13.9 INR 1.0 APTT 26.7 Blood Type B Positive Antibody Screen Negative Vital signs: Vital Signs - 24 hr 02/05/24 07:30 02/05/24 07:45 02/05/24 08:09 Pulse Rate 110 H 107 H 107 H Respiratory Rate 20 Blood Pressure 146/67 H 123/87 Oxygen Delivery Room Air 02/05/24 08:09 Pulse Rate 107 H Respiratory Rate Blood Pressure 123/87 Oxygen Delivery Final Diagnosis (1) Vaginal bleeding during : Code(s): O46.90 - Antepartum hemorrhage, unspecified, unspecified trimester Status: Acute Plan: - cervix: 2.5/50/-3 - labs/US reassuring - monitored for >4 hours with reassuring FHTs and no additional bleeding - ANCS today and tomorrow - will see in office 02/11/24 and do GBS swab
[2024-02-05] MEDS: BETAMETHASONE SOD PHOS/ACETATE 30 MG/5 ML VIAL 12 MG IM (12:49)
== END 2024-02-05 12:55 | disposition home or self-care (01) ==
PROVIDERS: Admitting Provider Obstetrics & Gynecology; Visit Provider Obstetrics & Gynecology
DX: O46.93 Antepartum hemorrhage, unspecified, third trimester (principal); Z3A.34 34 weeks gestation of pregnancy
CPT/HCPCS: 36415; 76815; 76819; 85025; 85610; 85730; 86850; 86900; 86901; 96372; G0378; G0379; J0702

== ENCOUNTER 2024-02-06 13:01 | Outpatient (CLI) | payer OTHER, SELFPAY ==
[2024-02-06] MEDS: BETAMETHASONE SOD PHOS/ACETATE 30 MG/5 ML VIAL 12 MG IM (13:23)
== END 2024-02-06 13:02 | disposition home or self-care (01) ==
LOC: ANHOBOP 13:02
PROVIDERS: Visit Provider Obstetrics & Gynecology
DX: N93.9 Abnormal uterine and vaginal bleeding, unspecified (principal)
CPT/HCPCS: 96372; J0702

== ENCOUNTER 2024-02-11 17:24 | Outpatient (CLI) | payer OTHER, SELFPAY ==
[2024-02-11 17:49] VITALS: BP 119/77; PULSE 110
[2024-02-11 18:00] VITALS: BP 115/73; PULSE 104
[2024-02-11 18:00] LABS: Basophils Absolute Auto 0.1 K/mm3 (0.0-0.1); Basophils Percent Auto 0.4 % (0.2-1.2); Eosinophils Absolute Auto 0.3 K/mm3 (0-0.3); Eosinophils Percent Auto 1.8 % (0-4.4); Hematocrit 36.7 % (37.0-47.0); Hemoglobin 12.6 g/dL (12.0-15.0); Immature Granulocyte Absolute 0.29 K/mm3 (0.00-0.031); Immature Granulocyte Percent A 1.6 % (0-0.5); Lymphocytes Absolute Auto 4.35 K/mm3 (0.9-3.2); Mean Corpuscular HGB Conc 34.3 g/dl (32-36); Mean Corpuscular Hemoglobin 30.2 pg (26-34); Mean Platelet Volume 10.4 fl (7.4-10.4); Monocytes Absolute Auto 1.2 K/mm3 (0.1-0.6); Monocytes Percent Auto 6.5 % (2.6-8.5); Neutrophils Absolute Auto 11.9 K/mm3 (1.3-6.7); Neutrophils Percent Auto 65.7 % (45.5-73.1); Platelet Count Result 292 k/mm3 (150-375); Red Blood Count 4.17 M/mm3 (4.2-5.4); Red Cell Distribution Width 13.8 % (11.5-14.5); White Blood Count 18.1 K/mm3 (4.5-10.0)
[2024-02-11 18:10] LABS: Alanine Aminotransferase 16 U/L (6-35); Albumin Level 3.9 g/dL (3.5-5.1); Alkaline Phosphatase 92 U/L (38-126); Anion Gap 7 mmol/L (4-12); Aspartate Amino Transferase 21 U/L (14-36); Bilirubin,Total 0.3 mg/dL (0.2-1.3); Blood Urea Nitrogen 6 mg/dL (7-17); Calcium 9.9 mg/dL (8.4-10.2); Carbon Dioxide 20 mmol/L (22-30); Chloride 104 mmol/L (98-107); Estimated Glomerular Filt Rate > 60; Glucose 121 mg/dL (65-110); Potassium 3.9 mmol/L (3.4-5.0); Sodium 131 mmol/L (137-145); Uric Acid 3.4 mg/dL (2.5-7.5)
[2024-02-11 18:15] VITALS: BP 122/78; PULSE 110; BMI 40.1
[2024-02-11 18:18] LABS: Creatinine Urine 16.1 mg/dL; Total Protein Urine Random 16 mg/dL; Ur Ttl Prot Creatinine Ratio 0.99 mg/mg (0-0.20)
[2024-02-11 18:30] VITALS: BP 117/67; PULSE 104
[2024-02-11 18:30] LABS: Appearance Urine Clear (Clear); Bacteria Urine Rare /hpf; Bilirubin Urine Negative (Negative); Blood Urine 2+ (Negative); Color Urine Yellow (Yellow); Glucose Urine UA Negative (Negative); Ketones Urine Negative (Negative); Leukocyte Esterase Ur 2+ LEU/UL (Negative); Need Manual Microscopic Reviewed; Nitrate Urine Negative (Negative); Non Pathogenic Casts 0-2; Protein Urine Negative (Negative); RBC Urine 0-2 /hpf (0-2); Specific Grav Ur 1.005 (1.001-1.035); Squamous Epithelial Cell Urine Occasional /hpf (Few); Urobilinogen Urine 0.2 mg/dL (<2.0); WBC Urine 21-50 /hpf (0-3); pH Urine 6.5 (5.0-9.0)
[2024-02-11 18:34] LABS: Add Urine Microscopic? YES
[2024-02-11 18:45] VITALS: BP 125/69; PULSE 115
--- NOTE | 2024-02-11 19:30 | PC.NURSE ---
Dr. Jean on unit. Lab results and BPs reviewed. Tracing reviewed. questionable deceleration noted. Monitor for additional 30min, if no further decelerations, may D/C home with 24hr urine.
== END 2024-02-11 20:10 | disposition home or self-care (01) ==
LOC: ANHOBOP 17:29 → ANHOBPP 17:31
PROVIDERS: Visit Provider Student in an Organized Health Care Education/Training Program
DX: O13.9 Gestational [pregnancy-induced] hypertension without significant proteinuria, unspecified trimester (principal); Z3A.00 Weeks of gestation of pregnancy not specified
CPT/HCPCS: 36415; 59025; 80053; 81001; 82570; 84156; 84550; 85025; 87086; 87088; 99199

== ENCOUNTER 2024-02-12 15:37 | Outpatient (CLI) | payer OTHER, SELFPAY ==
--- NOTE | ~2024-02-12 | US_ITS ---
EXAMINATION: US OB follow up w BPP DATE: 02/12/2024 16:21 INDICATION: Frequency. Assess growth and amniotic fluid index during third trimester . TECHNIQUE: Real-time pelvic ultrasound was performed. The interpreting radiologist was not present fo r the study. COMPARISON: None. FINDINGS: There is a single living fetus in vertex presentation. The placenta is posterior fundal and not low- lying. heart rate is 169 beats per minute (bpm). Normal amniotic fluid index of 11.4 cm (5th%-9 5%: 7.9-24.9 cm at 35 weeks estimated gestational age) Biophysical profile performed by the technologist: breathing (30 sec sustained breathing in 30 minutes): 2 out of 2 movement (3 gross body movements in 30 minutes): 2 out of 2 tone (one episode of nhadpwg-bkumhyjvs-hpemguf limb movement): 2 out of 2 Amniotic fluid pocket (2 cm): 2 out of 2 Total score: 8 out of 8 IMPRESSION: 1. Single living fetus in vertex presentation with heart rate of 169 bpm. 2. Biophysical profile 8 out of 8. 3. Normal amniotic fluid index of 11.4 cm. Reviewed, dictated and finalized at location A.
== END 2024-02-12 15:38 ==
LOC: MICIMG 15:38
PROVIDERS: PCP Obstetrics & Gynecology; Visit Provider Obstetrics & Gynecology
DX: Z34.90 Encounter for supervision of normal pregnancy, unspecified, unspecified trimester (principal); Z3A.00 Weeks of gestation of pregnancy not specified
CPT/HCPCS: 76816; 76819

== ENCOUNTER 2024-02-12 19:47 | Outpatient (NON) | payer OTHER, SELFPAY ==
[2024-02-12 20:33] VITALS: BMI 40.2
[2024-02-12 20:59] LABS: Collection Time Urine 24 HOURS
[2024-02-12 21:08] LABS: Patient Weight 234 Lbs; Total Volume 24 Hour Urine 5000 ml
[2024-02-12 21:16] LABS: Creatinine Urine 30.7 mg/dL; Total Protein Urine Random 14 mg/dL
[2024-02-12 21:30] LABS: Total Protein Urine 24 Hr 700 mg/24hr (28-141)
== END 2024-02-12 19:48 | disposition home or self-care (01) ==
LOC: ANHOBOP 19:56
PROVIDERS: PCP Obstetrics & Gynecology; Visit Provider Obstetrics & Gynecology
DX: O13.9 Gestational [pregnancy-induced] hypertension without significant proteinuria, unspecified trimester (principal); Z3A.00 Weeks of gestation of pregnancy not specified
CPT/HCPCS: 81050; 82575; 84156

== ENCOUNTER 2024-02-15 18:28 | Observation (INO) | payer OTHER, SELFPAY ==
--- NOTE | 2024-02-15 15:33 | OBADM ---
This patient, Mabel Alanis, admitted to the OB room OB Post 113 for observation. Patient/family oriented to hospital policies and general routines including ID bracelet, bed and alarms, visiting hours, pain management, procedures, bathroom and other care routines, personal items, smoking policy, room service/diet, and visiting hours. Patient/Family are encouraged to report perceived risks to care and to ask questions if they do not understand what they are told or what they should do.
[2024-02-15 15:59] VITALS: BP 124/85; PULSE 110
[2024-02-15 16:14] VITALS: BP 113/71; PULSE 107
--- NOTE | 2024-02-15 16:20 | PC.NURSE ---
Pt reports having brown discharge that started last night that appeared like tissue and brown slimy discharge. Pt showed RN her pantie liner and it showed minimal brown discharge. pt stated she was examined in the office with a speculum on sunday and had some spotting the next day but it did stop. pt also found to be joseline. Pt did not originally have this complaint.
--- NOTE | 2024-02-15 16:21 | PC.NURSE ---
Dr. Navarro updated on pt complaints. ROM plus preformed and awaiting results. Pt contracts updarted to Dr. Navarro. order received for terb x1 and oral hydrate.
--- NOTE | 2024-02-15 16:45 | PC.NURSE ---
Dr. Navarro updated. pt refusing terb. Dr. Navarro order 30 procardia xl in its placed. No further orders at this time.
[2024-02-15] MEDS: NIFEdipine 30 MG TAB.ER.24 PO (17:10)
--- NOTE | 2024-02-15 18:20 | PC.NURSE ---
Dr. Navarro phoned in. Informed of decreased contractions and pt states that she is comfortable going home. 2 questionable late decelerations noted on tracing, that resolved, with none since and a reactive tracing. May D/C home.
[2024-02-15 18:25] VITALS: BMI 40.1
--- NOTE | 2024-02-18 08:16 | PM.OBTRLD ---
OB - Triage/Final Diagnosis Visit Information Reason for evaluation: threatened labor Comments/Additional reasons for admission: I have assessed the risk for this patient, Mabel Alanis, and determined that she would benefit from observation care.
== END 2024-02-15 18:35 ==
LOC: ANHOBOP 18:59 → ANHOBPP 02-18 08:08
PROVIDERS: Admitting Provider Obstetrics & Gynecology; PCP Obstetrics & Gynecology; Visit Provider Obstetrics & Gynecology
DX: O47.03 False labor before 37 completed weeks of gestation, third trimester (principal); Z3A.35 35 weeks gestation of pregnancy
CPT/HCPCS: 84112; A9270; G0378; G0379

== ENCOUNTER 2024-02-21 16:31 | Outpatient (RCR) | payer OTHER, SELFPAY ==
[2024-02-14 18:12] VITALS: BP 132/75; PULSE 112
[2024-02-18 15:52] VITALS: BP 129/79; PULSE 99
--- NOTE | ~2024-02-21 | US_ITS ---
EXAMINATION: US OB follow up DATE: 02/14/2024 17:37 INDICATION: Preeclampsia. Third trimester. TECHNIQUE: Real-time ultrasound of the pelvis was performed. COMPARISON: Ultrasound 02/12/2024, 07/30/2023 FINDINGS: There is a single living fetus in vertex presentation. The placenta is fundal and posterior. h eart rate is 169 beats per minute (bpm). The amniotic fluid index is 9.8 cm, which is normal. The following biometric data were obtained: Biparietal diameter (BPD): 8.9 cm; head circumference (HC): 31.5 cm; abdominal circumference (AC): 33 .3 cm; femur length (FL): 7.0 cm. These measurements are concordant. Estimated weight is 2971 g +/- 446 g, which correlates with the 77th percentile when 03/16/24 is used as estimated date of delivery. As single measurements, these parameters are each equal to the following estimated gestational ages: BPD: 35 weeks 6 days. HC: 35 weeks 2 days. AC: 37 weeks 1 days. FL: 36 weeks 0 days. estimated gestational age based solely on measurements from this exam is 36 weeks 1 days +/- 2 weeks 4 days. IMPRESSION: 1. Single living fetus in vertex presentation. 2. Estimated weight is 2971 g +/- 446 g, which correlates with the 77th percentile when 4 is used as estimated date of delivery. Note that estimated date of delivery based on the ultrasound from 07/30/2023 would be 03/20/2024. Reviewed, dictated and finalized at location E. IMPRESSION: 1. Single living fetus in vertex presentation. 2. Estimated weight is 2971 g +/- 446 g, which correlates with the 77th percentile when 03/16/24 is used as estimated date of delivery. Note that estima rachel date of delivery based on the ultrasound from 07/30/2023 would be 03/20/2024.
[2024-02-21 17:00] VITALS: BP 124/72; PULSE 108
== END 2024-04-14 08:21 | disposition home or self-care (01) ==
LOC: ANHOBOP 16:31
PROVIDERS: PCP Obstetrics & Gynecology; Visit Provider Obstetrics & Gynecology
DX: O14.93 Unspecified pre-eclampsia, third trimester (principal); Z3A.35 35 weeks gestation of pregnancy; Z3A.36 36 weeks gestation of pregnancy
CPT/HCPCS: 59025; 76816

== ENCOUNTER 2024-02-25 06:13 | Inpatient (IN) | payer OTHER, SELFPAY ==
[2024-02-25] VITALS (178 sets, daily range): BP systolic 95–159; BP diastolic 49–122; PULSE 51–157; RESP 18; TEMP 36.2–36.8; O2SAT 72–100; BMI 40.4
[2024-02-25 07:06] LABS: Basophils Absolute Auto 0.1 K/mm3 (0.0-0.1); Basophils Percent Auto 0.4 % (0.2-1.2); Eosinophils Absolute Auto 0.2 K/mm3 (0-0.3); Eosinophils Percent Auto 1.2 % (0-4.4); Hematocrit 37.5 % (37.0-47.0); Hemoglobin 12.6 g/dL (12.0-15.0); Immature Granulocyte Absolute 0.15 K/mm3 (0.00-0.031); Lymphocytes Absolute Auto 3.13 K/mm3 (0.9-3.2); Mean Corpuscular HGB Conc 33.6 g/dl (32-36); Mean Corpuscular Hemoglobin 29.6 pg (26-34); Mean Platelet Volume 10.9 fl (7.4-10.4); Neutrophils Absolute Auto 10.3 K/mm3 (1.3-6.7); Neutrophils Percent Auto 69.4 % (45.5-73.1); Platelet Count Result 228 k/mm3 (150-375); Red Blood Count 4.26 M/mm3 (4.2-5.4); White Blood Count 14.9 K/mm3 (4.5-10.0)
[2024-02-25 07:18] LABS: Alanine Aminotransferase 14 U/L (6-35); Albumin Level 3.7 g/dL (3.5-5.1); Alkaline Phosphatase 90 U/L (38-126); Anion Gap 9 mmol/L (4-12); Aspartate Amino Transferase 18 U/L (14-36); Bilirubin,Total 0.4 mg/dL (0.2-1.3); Blood Urea Nitrogen 3 mg/dL (7-17); Calcium 9.7 mg/dL (8.4-10.2); Carbon Dioxide 19 mmol/L (22-30); Chloride 108 mmol/L (98-107); Glucose 102 mg/dL (65-110); Potassium 3.7 mmol/L (3.4-5.0); Sodium 136 mmol/L (137-145); Uric Acid 5.1 mg/dL (2.5-7.5)
[2024-02-25 07:30] LABS: Estimated CRCL calculation 208 ml/min; Estimated Glomerular Filt Rate > 60
[2024-02-25] MEDS: miSOPROStol 25 MCG TABLET 50 MCG SUBLINGUAL (07:39)
--- NOTE | 2024-02-25 07:57 | PM.IMHP ---
H&P: HPI History of Present Illness Date/Time: 02/25/24 07:57 Chief Complaint: Induction of labor Narrative: Mabel is a 23yo @ 37.1wks who presents for induction of labor due to pre-eclampsia w/o severe features. She had a fall; did not hit her belly, but had some bleeding and was monitored for multiple hours. She was found to have a normal appearing placenta/labs/ heart rate tracing, but did get betamethasone x 2 at 34wks. While admitted, was found to have elevated blood pressure and 24 hour urine protein was 700g. She has been undergoing testing. She denies any severe symptoms of pre-eclampsia. She reports good movement. Irregular contractions. No vaginal bleeding or leakage of fluid. Her is complicated by: - History of preeclampsia with induction at 37 weeks with G1... ASA 162 daily - Vaginal bleeding/advanced cervical dilation; steroids 02/04 & 02/05 (34wks) - Pre-eclampsia w/o SF; urine protein 700g Review of Systems Constitutional: Constitutional: Denies chills, Denies fever(s) and Denies headache(s) Eyes: Eyes: Denies change in vision ENT: Denies headache(s) Cardiovascular: Cardiovascular: Denies chest pain and Denies dyspnea Respiratory: Respiratory: Denies dyspnea Genitourinary: Genitourinary: Denies abnormal vaginal bleeding and Denies vaginal discharge Neurologic: Denies headache(s) Psychiatric: Psychiatric: Denies anxiety and Denies depression [facility] Past Medical History Medical History Anemia Migraines Patient denies significant medical history Pre-eclampsia and not yet delivered Surgical History Surgical History History of excision of mass excision 4 cm perianal subcutaneous mass 10/04/2022 History of tonsillectomy [place] teeth removed Family History Family History Mother Hard of hearing Grandparent Lung cancer maternal grandmother Social History Social History Smoking status: Former smoker Tobacco type: e-cigarettes/vaping Second hand tobacco smoke exposure: No Smoking end date: 07/17/23 Additional smoking assessment comments: vaped in past Alcohol intake: never Substance use: never Substance use type: does not use Do You Feel Safe in your Home?: Yes Lack of Transportation: No Lack of Food: Never True Current Housing: I Have Housing Concerned About Future Housing: No Difficulty Paying Gas/Electric Bills: No Difficulty Paying for Meds: No Currently Unemployed: No Education: High School Diploma/GED Difficulty w/ Childcare or Family Care: No Living arrangements: with family Additional living arrangements comments: Engaged Occupation/Education: occupation Additional occupation/education comments: [employer] Gender identity (if verbalized by the patient): Female Sexual Orientation (if Verbalized by the Patient): Straight or Heterosexual Spiritual care concerns: No Meds Home Medications and Allergies Home Medications Medication Instructions Recorded Confirmed Type vitamins-iron fumarate 65 1 tablet PO DAILY 09/12/23 02/25/24 History mg iron-folic acid 1 mg tablet aspirin 81 mg tablet,delayed 162 mg PO DAILY 01/09/24 02/25/24 History release (Adult Low Dose Aspirin) ferrous sulfate 325 mg (65 mg 325 mg PO DAILY 01/09/24 02/25/24 History iron) tablet Allergies Allergy/AdvReac Type Severity Reaction Status Date / Time cat dander Allergy Mild Itching Verified 02/25/24 07:14 Vital Signs Vital Signs - 24 hr 02/25/24 06:45 02/25/24 07:15 02/25/24 07:30 Pulse Rate 104 H 101 H 123 H Blood Pressure 141/87 H 130/79 134/81 Oxygen Delivery 02/25/24 07:02 Pulse Rate Blood Pressure Oxygen Delivery Room A
[2024-02-25] MEDS: LACTATED RINGERS 1,000 ML 125 ML IV CONT ×3 (10:47→13:28)
--- NOTE | 2024-02-25 11:10 | WPDANESEPP ---
Anes - Eval Pre Procedure Procedure: labor epidural Date/Time: 02/25/24 11:10 Surgeon: selene Jean Preop Diagnosis: Pain during labor Pre Op Diagnosis: IOL Patient Data Age: 23 Gender: F Height: 1.63 m Weight: 107 kg Last Vital Signs Temp 36.2 C L 02/25/24 08:26 Pulse 92 02/25/24 11:01 BP 134/84 02/25/24 11:01 O2 Del Method Room Air 02/25/24 07:02 Allergies Allergy/AdvReac Type Severity Reaction Status Date / Time cat dander Allergy Mild Itching Verified 02/25/24 07:14 Home Medications Medication Instructions Recorded Confirmed Type vitamins-iron fumarate 65 1 tablet PO DAILY 09/12/23 02/25/24 History mg iron-folic acid 1 mg tablet aspirin 81 mg tablet,delayed 162 mg PO DAILY 01/09/24 02/25/24 History release (Adult Low Dose Aspirin) ferrous sulfate 325 mg (65 mg 325 mg PO DAILY 01/09/24 02/25/24 History iron) tablet Laboratory Tests 02/25/24 02/25/24 06:56 06:56 WBC 14.9 H K/mm3 (4.5-10.0) RBC 4.26 M/mm3 (4.2-5.4) Hgb 12.6 g/dL (12.0-15.0) Hct 37.5 % (37.0-47.0) MCV 88.0 fl (80-100) MCH 29.6 pg (26-34) MCHC 33.6 g/dl (32-36) RDW 14.0 % (11.5-14.5) Plt Count 228 k/mm3 (150-375) MPV 10.9 H fl (7.4-10.4) Immature Gran % (Auto) 1.0 H % (0-0.5) Neut % (Auto) 69.4 % (45.5-73.1) Lymph % (Auto) 21.0 % (18.3-44.2) [place] % (Auto) 7.0 % (2.6-8.5) Eos % (Auto) 1.2 % (0-4.4) Baso % (Auto) 0.4 % (0.2-1.2) Lymph # (Auto) 3.13 K/mm3 (0.9-3.2) [place] # (Auto) 1.0 H K/mm3 (0.1-0.6) Eos # (Auto) 0.2 K/mm3 (0-0.3) Baso # (Auto) 0.1 K/mm3 (0.0-0.1) Abs Immat Gran (auto) 0.15 H K/mm3 (0.00-0.031) Absolute Neuts (auto) 10.3 H K/mm3 (1.3-6.7) Absolute Nucleated RBC 0.000 K/mm3 (0.0-0.012) Nucleated RBC % 0.0 % (0.0-0.2) Sodium 136 L mmol/L (137-145) Potassium 3.7 mmol/L (3.4-5.0) Chloride 108 H mmol/L (98-107) Carbon Dioxide 19 L mmol/L (22-30) Anion Gap 9 mmol/L (4-12) BUN 3 L mg/dL (7-17) Creatinine 0.40 L mg/dL (0.7-1.0) Estim Creat Clear Calc 208 ml/min Estimated GFR > 60 (59 - ) Glucose 102 mg/dL (65-110) Uric Acid Cancelled 5.1 mg/dL (2.5-7.5) Calcium 9.7 mg/dL (8.4-10.2) Total Bilirubin 0.4 mg/dL (0.2-1.3) AST 18 U/L (14-36) ALT 14 U/L (6-35) Alkaline Phosphatase 90 U/L (38-126) Total Protein 7.0 g/dL (6.3-8.2) Albumin 3.7 g/dL (3.5-5.1) RPR Pending Blood Type B Positive Antibody Screen Negative Patient hx anesthesia problems: none Family hx anesthesia problems: none Results Review: All pre-operative results and documents have been reviewed as part of the pre-operative evaluation. [facility] Past Medical History Medical History Anemia Migraines Patient denies significant medical history Pre-eclampsia and not yet delivered Surgical History Surgical History History of excision of mass excision 4 cm perianal subcutaneous mass 10/04/2022 History of tonsillectomy [place] teeth removed Family History Family History Mother Hard of hearing Grandparent Lung cancer maternal grandmother Social History Social History Smoking status: Former smoker Tobacco type: e-cigarettes/vaping Second hand tobacco smoke exposure: No Smoking end date: 07/17/23 Additional smoking assessment comments: vaped in past Alcohol intake: never Substance use: never Substance use type: does not use Do You Feel Safe in your
[2024-02-25] MEDS: OXYTOCIN 30 UNITS/NS 500 ML 30 UNITS/500 ML BAG IV CONT (12:26)
--- NOTE | 2024-02-25 12:27 | PM.OBPNLAB ---
Pain Control Date/time seen: 02/25/24 12:27 Pain control: epidural Pelvic Exam Dilation (cm): 4 Effacement (%): 50 station: -2 Amniotic membrane status: Ruptured (AROM, clear 1220) Contractions Monitor mode: External Contraction frequency: 6 Status status: Category l Assessment and Plan Assessment: induction ongoing Comments: - will start pitocin augmentation
[2024-02-25 14:28] LABS: Rapid Plasma Reagin Non-Reactive (NonReactive)
[2024-02-25] MEDS: SODIUM CHLORIDE 0.9% IV 300 ML 600 ML I-UTERINE (17:58)
[2024-02-25] MEDS: OXYTOCIN 30 UNITS/NS 500 ML 30 UNITS/500 ML BAG 999 UNITS IV CONT (18:10)
--- NOTE | 2024-02-25 18:24 | PM.OBPRVD ---
OB - Vaginal Delivery Note Procedure Delivery date: 02/25/24 Events: Preeclampsia w/o severe features Induction method: Per Cervidil Protocol Delivery augmentation: Rupture of Membranes and Pitocin Delivery monitor: External FHT and Internal Uterine Route of delivery: vacuum extraction Indication for instrumentation: nonreassuring FHR tracing Episiotomy description: None Laceration Description: Perineal - 1st Degree Delivery repair: vicryl Specimen: Yes (placenta) Quantitative Blood Loss (ml): 300 Anesthesia type: Epidural Disposition: Floor Complications: No immediate complications Baby Date of : 02/25/24 Time of : 18:08 Weeks of gestation at delivery: 37 (.1) Infant gender: Male Weight (pounds): 7 Weight (ounces): 12 presentation: vertex position: Right Occiput Posterior Placenta delivery description: Expressed Cord Vessel Description: 3 Vessels and Clamped/Cut score one minute: 8 score five minutes: 9 Narrative: Mabel progressed to complete dilation with strong desire to push. She pushed for approximately 25 minutes with good maternal effort. But, heart decelerations were noted and becoming more prolonged with each contraction. heart tones were in the 70's and she was endorsing exhaustion. I counseled her on my recommendation for vacuum assisted vaginal delivery and she agreed. The pediatric attending was then called. With the next contraction the suction of the kiwi vacuum was applied. She pushed 3 times and 3 pulls with 0 pop offs occurred. The suction was released between contractions. The suction was reapplied with the next contraction and after 2 pulls and 0 pop offs, the head delivered over intact perineum. The suction was released and she easily delivered the 's shoulders and body without complication. The infant was immediately placed skin to skin and he was stimulated. Heart tones were in the 80s and the umbilical cord was then doubly clamped and cut and cry was heard, but he was taken over to the warmer by the pediatric team for further assessment. A segment of the cord was collected for cord gases. The remaining cord blood was collected for typing. With Pitocin running and gentle downward traction on the cord, the placenta delivered without complication. Bimanual massage was performed and good uterine tone with minimal bleeding was noted. She was examined and a first-degree perineal laceration was identified. The laceration was repaired in the normal manner using 2-0 Vicryl and was found to be hemostatic. Bimanual massage was once again performed and good uterine tone with minimal bleeding. Sponge, lap, instrument, and needle counts were correct at the end the procedure. Mom and baby were left bonding in the birthing suite in stable condition. [facility] Delivery Billing Delivery Delivery: Delivery Charge
[2024-02-25] MEDS: OXYTOCIN 30 UNITS/NS 500 ML 30 UNITS/500 ML BAG 125 UNITS IV CONT (18:43)
[2024-02-25] MEDS: BENZOCAINE 20% AER SPR (*SP) 56 GM CAN 1 SPRAY TOPICAL (20:53)
[2024-02-25] MEDS: IBUPROFEN 600 MG TABLET PO (21:57)
[2024-02-25] MEDS: ACETAMINOPHEN 325 MG TABLET 650 MG PO (21:57)
[2024-02-26 00:05] VITALS: BP 117/64; PULSE 82; TEMP 36.7
[2024-02-26] MEDS: ACETAMINOPHEN 325 MG TABLET 650 MG PO ×3 (03:45→18:47)
[2024-02-26] MEDS: IBUPROFEN 600 MG TABLET PO ×3 (03:45→18:47)
[2024-02-26 03:46] VITALS: BP 123/68; RESP 18; TEMP 37
--- NOTE | 2024-02-26 06:26 | PM.OBPNVD ---
OB - PN: Subj Subjective Date/time seen: 02/26/24 06:26 Narrative: PPD#1 Mabel reports doing well today. 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 Her pain is controlled. She is tolerating regular diet, voiding, passing gas, and ambulating without issues. She is breast feeding/pumping. Her son is having some issues with blood sugar (being low), she would like her son circumcised-- but tomorrow. OB - PN: Obj Data Labs 02/25/24 06:56 02/25/24 06:56 Labs: Laboratory Results - last 24 hr 02/25/24 02/25/24 06:56 06:56 WBC 14.9 H RBC 4.26 Hgb 12.6 Hct 37.5 MCV 88.0 MCH 29.6 MCHC 33.6 RDW 14.0 Plt Count 228 MPV 10.9 H Immature Gran % (Auto) 1.0 H Neut % (Auto) 69.4 Lymph % (Auto) 21.0 [place] % (Auto) 7.0 Eos % (Auto) 1.2 Baso % (Auto) 0.4 Lymph # (Auto) 3.13 [place] # (Auto) 1.0 H Eos # (Auto) 0.2 Baso # (Auto) 0.1 Abs Immat Gran (auto) 0.15 H Absolute Neuts (auto) 10.3 H Absolute Nucleated RBC 0.000 Nucleated RBC % 0.0 Sodium 136 L Potassium 3.7 Chloride 108 H Carbon Dioxide 19 L Anion Gap 9 BUN 3 L Creatinine 0.40 L Estim Creat Clear Calc 208 Estimated GFR > 60 Glucose 102 Uric Acid Cancelled 5.1 Calcium 9.7 Total Bilirubin 0.4 AST 18 ALT 14 Alkaline Phosphatase 90 Total Protein 7.0 Albumin 3.7 RPR Non-reactive Blood Type B Positive Antibody Screen Negative OB - PN A/P Assessment and Plan (1) Vacuum-assisted vaginal delivery: Code(s): Z37.9 - Outcome of delivery, unspecified Status: Acute Plan day: 1 Plan: routine care Comments: - PO pain meds - Regular diet - Ambulation and hydration encouraged - Continue putting baby to breast q2-3hr Time Spent With Patient Time: Total time spent is greater than 50% in coordination of care (as documented) at patient's floor/unit and/or counseling patient: Review of Systems Constitutional: Constitutional: Denies chills, Denies fever(s) and Denies headache(s) Eyes: Eyes: Denies change in vision ENT: Denies dizziness and Denies headache(s) Cardiovascular: Cardiovascular: Denies chest pain, Denies palpitations and Denies dyspnea Respiratory: Respiratory: Denies cough and Denies dyspnea Gastrointestinal: Gastrointestinal: Denies nausea and Denies vomiting Neurologic: Denies dizziness and Denies headache(s) Endocrine: Endocrine: Denies palpitations Exam Const: General: cooperative, comfortable and no acute distress Orientation/consciousness: patient oriented x3 Resp: Effort & Inspection: normal respiratory effort Auscultation: clear to auscultation bilaterally Cardio: Rate: regular rate GI: Inspection: non-distended GI Palp: No abdominal tenderness and Yes Soft to palpation Auscultation: normal bowel sounds : Other: fundus firm Skin: General skin exam: normal color Neuro: General: patient oriented x3 Extrem: General: normal to inspection Psych: Appearance: grossly normal Affect: normal affect Attitude: cooperative
[2024-02-26] MEDS: DOCUSATE SODIUM 100 MG CAPSULE PO (08:07)
[2024-02-26 08:14] LABS: Hematocrit 34.4 % (37.0-47.0); Hemoglobin 11.6 g/dL (12.0-15.0); Mean Corpuscular HGB Conc 33.7 g/dl (32-36); Mean Corpuscular Hemoglobin 29.8 pg (26-34); Mean Corpuscular Volume 88.4 fl (80-100); Mean Platelet Volume 10.7 fl (7.4-10.4); Platelet Count Result 196 k/mm3 (150-375); Red Blood Count 3.89 M/mm3 (4.2-5.4); Red Cell Distribution Width 14.2 % (11.5-14.5); White Blood Count 16.7 K/mm3 (4.5-10.0)
[2024-02-26 08:20] VITALS: BP 121/78; PULSE 80; RESP 16; TEMP 36.8; O2SAT 100
--- NOTE | 2024-02-26 09:24 | WPDANLDPN2 ---
Anes-Prog Note L&D Date/Time: 02/26/24 09:24 Comfortable throughout: labor and delivery Neuraxial method: epidural Epidural/Spinal procedure site: clean & non-tender Neuro status: Neuro function grossly intact. Cardiovascular status: normal Respiratory status: normal Airway patency: baseline Mental status: baseline Post-Op hydration status: normal Vital Signs: Last Vital Signs Temp 36.8 C 02/26/24 08:20 Pulse 80 02/26/24 08:20 Resp 16 02/26/24 08:20 BP 121/78 02/26/24 08:20 Pulse Ox 100 02/26/24 08:20 O2 Del Method Room Air 02/25/24 07:02 Pain score (VAS): 11/07 I/O: Intake & Output 02/25/24 02/26/24 02/26/24 23:59 07:59 15:59 Intake Total 100 Output Total 500 Balance -400 Post-procedural complaints: none Patient feedback: Patient satisfied with anesthetic care.
[2024-02-26 12:15] VITALS: BP 124/67
[2024-02-26 16:43] VITALS: BP 134/82; PULSE 80; RESP 18; TEMP 36.7; O2SAT 100
[2024-02-26 19:06] VITALS: BP 139/90; PULSE 91; RESP 18; TEMP 37
[2024-02-27 01:23] VITALS: BP 116/75; PULSE 89; RESP 16; TEMP 37.1
[2024-02-27] MEDS: MULTIVIT/MIN/PREN/FOL AC/IRON TABLET 1 TAB PO (07:30)
[2024-02-27] MEDS: DOCUSATE SODIUM 100 MG CAPSULE PO (07:31)
[2024-02-27] MEDS: IBUPROFEN 600 MG TABLET PO (07:32)
[2024-02-27] MEDS: ACETAMINOPHEN 325 MG TABLET 650 MG PO (07:33)
[2024-02-27 07:36] VITALS: BP 118/82; PULSE 92; RESP 16; TEMP 36.6; O2SAT 99
--- NOTE | 2024-02-27 08:04 | PM.OBDSVD ---
DS: Admitting Diagnosis Discharge Date 02/27/24 Admitting Diagnosis Pre-eclampsia w/o severe features DS: Discharge Diagnosis Discharge Diagnosis (1) Vacuum-assisted vaginal delivery: Code(s): Z37.9 - Outcome of delivery, unspecified Status: Acute (2) heart rate decelerations, delivered: Code(s): O76 - Abnormality in heart rate and rhythm complicating labor and delivery Status: Acute OB - DS: Summary OB Procedures : NST, PIH Mgmt and Ultrasound OB Procedures Intrapartum: Vacuum extraction OB Procedures: : None Peripartum Data Delivery Method: Assisted Delivery Laceration Description: Perineal - 1st Degree Episiotomy description: None complications: none [place] 1: Gender: Male Disposition of : home Status at Discharge Functional status at discharge: independent ambulation Overall status at discharge: patient is back to baseline Time Spent with Patient Time attestation: Total time spent providing and/or coordinating discharge services: Exam Const: General: cooperative, healthy appearing, comfortable and no acute distress Nutritional Appearance: obese Orientation/consciousness: patient oriented x3 Resp: Effort & Inspection: normal respiratory effort Auscultation: clear to auscultation bilaterally Cardio: Rate: regular rate GI: Inspection: non-distended GI Palp: No abdominal tenderness and Yes Soft to palpation Auscultation: normal bowel sounds : Other: fundus firm Skin: General skin exam: normal color Neuro: General: patient oriented x3 Extrem: General: normal to inspection Psych: Appearance: grossly normal Affect: normal affect Attitude: cooperative DS: Data Data Completed and Pending Pending studies at discharge: Pending at discharge 02/26/24 06:55 Surgical [PTH] Routine Labs on day of discharge: Labs from last 24 hours 02/26/24 08:06 WBC 16.7 H RBC 3.89 L Hgb 11.6 L Hct 34.4 L MCV 88.4 MCH 29.8 MCHC 33.7 RDW 14.2 Plt Count 196 MPV 10.7 H Discharge Plan Discharge Attending physician on discharge: Albina Jean Discharging Clinician: Albina Jean Anticipated Discharge Date/Time: 02/27/24 18:00 Patient Disposition: Home, Self-Care Activity: may shower and pelvic rest Diet: regular Patient Instructions: Vaginal Delivery (DC) Stand Alone Forms: General Discharge Information Follow-up/Referrals: Albina Jean MD [Physician] - 4 Weeks Discharge Medications: New acetaminophen 325 mg Tablet 650 mg PO Q6H PRN (Reason: Mild Pain (1-3) Or Headache) Qty: 60 0RF docusate sodium 100 mg Capsule 100 mg PO BID PRN (Reason: Constipation) Qty: 90 0RF ibuprofen 600 mg Tablet 600 mg PO Q6H PRN (Reason: Cramping) Qty: 60 0RF Continued vit-iron fum-folic ac 65 mg iron- 1 mg tablet 1 tablet PO DAILY Discontinued aspirin [Adult Low Dose Aspirin] 81 mg tablet,delayed release (DR/EC) 162 mg PO DAILY ferrous sulfate 325 mg (65 mg iron) tablet 325 mg PO DAILY Date of admission: 02/25/24 06:13 Primary Care Provider: UNKNOWN,DOCTOR Admitting Provider: Albina Jean Attending physician on admission: Albina Jean Condition: Stable
[2024-02-28 09:54] VITALS: BP 130/80; PULSE 87; RESP 18; TEMP 36.7; O2SAT 98
== END 2024-02-27 10:02 | disposition home or self-care (01) | DRG 807 ==
LOC: ANHLDR 06:16 → ANHOB2 21:00
PROVIDERS: Admitting Provider Obstetrics & Gynecology; Visit Provider Obstetrics & Gynecology
DX: O14.94 Unspecified pre-eclampsia, complicating childbirth (principal); Z37.0 Single live birth; Z3A.37 37 weeks gestation of pregnancy; O70.0 First degree perineal laceration during delivery; O36.8330 Maternal care for abnormalities of the fetal heart rate or rhythm, third trimester, not applicable or unspecified; O75.81 Maternal exhaustion complicating labor and delivery; O67.8 Other intrapartum hemorrhage
CPT/HCPCS: 36415; 80053; 84550; 85025; 85027; 86592; 86850; 86900; 86901; 88307; A9270; J2590; J2795; J7030; J7120

== ENCOUNTER 2024-12-11 01:18 | Day surgery (SDC) | payer OTHER, SELFPAY ==
[2024-11-27 08:35] VITALS: BMI 36.3
--- OUTSIDE RECORDS SUMMARY | 2024-12-11 01:21 | XMS_ITS | Clinical Summary ---
Author Organization [facility] Address [address] [place] [address] Care Team Providers Care Traffic Technician Name Role Phone No, Physician Primary Care Provider [phone] Allergies No known active allergies Encounters Date Type Department Care Team Description 10/29/2024 7:33 PM BOWLING ALLEY OPERATOR - 10/29/2024 8:53 PM BOWLING ALLEY OPERATOR Emergency [facility] Emergency Department [address] [place] [address] Laceration of left hand, foreign body presence unspecified, initial encounter (Primary Dx) Discharge Disposition: Discharge to home or self care from Last 3 Months Social History Tobacco Use Types Packs/Day Years Used Date Smoking Tobacco: Never Assessed Personal Safety Answer Date Recorded Have you ever been in or are you currently in a harmful physical or emotional relationship or is someone making you feel afraid or unsafe? Denies 10/29/2024 Comments Unknown Sex and Gender Information Value Date Recorded Sex Assigned at Not on file Legal Sex Female 8:01 AM BOWLING ALLEY OPERATOR Gender Identity Not on file Sexual Orientation Not on file Last Filed Vital Signs Vital Sign Reading Time Taken Comments Blood Pressure 155/104 10/29/2024 7:31 PM BOWLING ALLEY OPERATOR Pulse 100 10/29/2024 7:31 PM BOWLING ALLEY OPERATOR Temperature 36.7 C (98 F) 10/29/2024 7:31 PM BOWLING ALLEY OPERATOR Respiratory Rate 14 10/29/2024 7:31 PM BOWLING ALLEY OPERATOR Oxygen Saturation 99% 10/29/2024 7:31 PM BOWLING ALLEY OPERATOR Inhaled Oxygen Concentration - - Weight 98.9 kg (218 lb) 10/29/2024 7:31 PM BOWLING ALLEY OPERATOR Height 162.6 cm (5' 4 ) 08/18/2016 5:00 AM CDT Body Mass Index 37.42 08/18/2016 5:00 AM CDT Plan of Treatment Health Maintenance Due Date Last Done Comments Cervical Cancer Screening 1998 Depression Screening 1998 Hepatitis C Screening 1998 Varicella Vaccines (1 of 2 - 13+ 2-dose series) 2011 HPV Vaccines (2 - 3-dose series) 08/24/2015 07/27/2015 Hepatitis B Screening 2016 Regular Well Visit/Exam 18-64 2016 Covid-19 Vaccine ( - 2023- season) 2024 07/11/2021, 06/20/2021 DTaP/Tdap/Td Vaccine (5 - Td or Tdap) 01/09/2034 01/10/2024, 11/24/2017, 11/29/2011, Additional history exists Influenza Vaccine Completed 07/03/2024, , 09/20/2022, Additional history exists Pneumococcal vaccine <65 Aged Out No longer eligible based on patient's age to complete this topic Procedures Procedure Name Priority Date/Time Associated Diagnosis Comments ED LACERATION REPAIR Routine 10/29/2024 8:53 PM BOWLING ALLEY OPERATOR from Last 3 Months Results * Laceration Repair (10/29/2024 8:53 PM BOWLING ALLEY OPERATOR) Narrative Anjali Asencio PA - 10/29/2024 8:53 PM BOWLING ALLEY OPERATOR Anjali Asencio PA 10/29/2024 8:54 PM Laceration Repair Date/Time: 10/29/2024 8:53 PM Performed by: Anjali Asencio PA Authorized by: Isaias Michelle MD Anesthesia method: Local infiltration Local anesthetic: Lidocaine 1% WITH epi Location: Hand Hand location: L palm Length (cm): 1.5 Repair type: Simple Area cleansed with: Shur-Clens Amount of cleaning: Standard Repair method: Sutures Suture size: 4-0 Suture material: Nylon Suture technique: Simple interrupted Number of sutures: 5 Approximation: Close Dressing: Sterile dressing Patient tolerance of procedure: Tolerated well, no immediate complications Isaias Michelle MD IN CLINIC/BEDSIDE ORDERABLE S Final Result from Last 3 Months Insurance [employer] OPEN ACCESS [employer] Care Teams Traffic Technician Relationship Specialty Start Date End Date No, Physician PCP - General 10/29/24
--- OUTSIDE RECORDS SUMMARY | 2024-12-11 01:21 | XMS_ITS | Data Portability ---
Author Organization [facility] [place] Address [address] [place] [address] [place] [address] Assessment Encounter Date Assessment Date Assessment LastModified by Organization Details LastModified Time 01/01/2023 01/01/2023 Annual gynecological exam performed. Patient will come back in a year unless there are new symptoms. [email or web address] Not available 01/01/2023 17:15:49 08/08/2023 08/08/2023 hx preeclampsia- labs today NIPT at 10 weeks NT us at 12 weeks start 81 mg asa at 12 weeks f/u new ob in 4 weeks, ok with sp office and education done Not available 08/08/2023 11:56:00 Plan of Treatment Reminders Order Date Submit Date Provider Last Modified By Organization Details Last Modified Time Details Appointments None recorded. Lab test, urine 2022 023 [email or web address] 1 [place], [address], [place], [address], 10:31:02 Referral None recorded. Procedures None recorded. Surgeries None recorded. Imaging None recorded. Medication Orders Slynd 4 mg (28) tablet 2022 023 [email or web address] 1 [facility] What They Like [facility] [address] , [place], [address], 10:21:05 Patient TargetsNo targets recorded. Patient InstructionsNo instructions recorded. Reason for Referral None Reported. Results Created Date Observation Date Name Description Value Unit Range Abnormal Flag Note LastModifiedBy Organization Detail LastModifiedTime 01/02/20 23 01/01/2023 IMAGE GUIDE D PAP, REFLE X HPV IF ASCUS ONLY image guided Pap, reflex HPV ASCUS only SEE RESULT S BELOW CASE REPOR T: Cytol ogy Gynec ologi sina Repor t Case: [id number] Autho lolita joaquin Provi galileo: Tressa Guo, SPECIAL TESTER Colle cted: 01/01 1726 Order ing Locat ion: [place] [facility] Recei jamshid: 01/02 0957 First Scree n: Jai leavitt, Luis Armando fournier, CT Speci men: Scree eugenia Pap - Image d, Cervi x STATE MENT OF ADEQU ACY: Satis facto ry for evalu ation Trans forma tion zone compo nent prese nt FINAL DIAGN OSIS: Negat rosa for Intra epith elial Sunny n or Yane thomas (NIL) . Elect andres ranchomohini vidal d by Jai leavitt, Luis Armando fournier, CT on 2022 at 10:07 AM ----- ----- ----- ----- ----- ----- ----- ----- ----- ----- ----- ----- ----- ----- ----- ----- ----- ---- COMME NT: Note: This speci men was revie wed by a Cytot echno logis t and/o r Patho logis t (as indic ated in this repor t) after evalu ation using the Thinp rep Imagi ng Syste m. CLINI SINA INFOR MATIO N: Menst rual Statu s: LMP (if appli cable ): Clini sina Histo ry/Pr eviou s Pap: Type of Neopl hortencia (if appli cable ): Signi fican t Clini sina Findi ngs: Other Histo ry: Hormo ollie (if appli cable ): PAP EDUCA PIYUSH L NOTE: The Pap Test is a scree eugenia test with an inher ent false negat rosa rate. Liqui d-bas ed sampl ing may decre ase, but will not elimi ifeoma, false negat rosa resul ts. A negat rosa resul t does not precl ude the prese nce and/o r devel opmen t of disea se, since the prese nce of abnor mal cells in the sampl e depen ds on the locat ion of the lesio n and sampl ing techn ique. Ceec nued regul ar scree eugenia is the best metho d of cance r preve ntion . If repor rachel cytol ogic findi ng do not corre late with physi sina and/o r histo rical findi ngs, furth er inves tigat ion is recom sherrie d, as clini irving woods nted. Not Available [facility] (Lab) [address], [place], [address], 01/05/2023 11:10:03 01/02/20 23 01/01/2023 TRICH OMONA S VAGIN DALILA (RRNA ) trichomonas vaginalis ribosomal RNA (rrna) Negati ve negati ve Not Available [facility] (Lab) [address], [place], [address], 01/05/2023 11:10:03 01/02/20 23 01/01/2023 CT/GC (BREN) , THINP REP VIAL chlamydia trachomatis, PCR Negati ve negati ve Not Available [facility] (Lab) [address] [place], [address], 01/05/2023 11:10:04 01/02/20 23 01/01/2023 CT/GC (BREN) , THINP REP VIAL neisseria gonorrhoeae, PCR Negati ve negati ve Not Available [facility] (Lab) [address] [place], [address], 01/05/2023 11:10:04 07/17/20 23 07/17/2023 BHCG, QUANT ITATI VE B-HCG 3270.0 mIU/m L This assay was perfo rmed using [employer] ratio n reage nts and test kits. Value s obtai alejandra with other assay metho ds or kits canno t be used inter valencia eably . Refer ence Range s: Non-p regna nt, preme nopau paula women : 0.0-5 .3 mIU/m L Postm enopa usal women : 0.0-7 .0 mIU/m L Diana l Pregn wily: Gesta piyush l Age bHCG Conc. - mIU/m L 3 Weeks 5.8 - 71.7 4 Weeks 9.5 - 750 5 Weeks 217-7 138 6 Weeks 158 - 31,79 5 7 Weeks 3,697 - 162,5 63 8 Weeks 32,06 5 - 149,5 71 9 Weeks 63,80 3 - 151,4 10 10 Weeks 46,50 9 - 186,9 77 12 Weeks 27,83 2 - 210,6 12 14 Weeks 13,95 0 - 62,53 0 15 Weeks 12,03 9 - 70,97 1 16 Weeks 9,040 - 56,45 1 17 Weeks 8,175 - 55,86 8 18 Weeks 8,099 - 58,17 6 Not Available [facility] (Lab) [address], [place], [address], 07/18/2023 05:08:47 08/08/20 23 08/08/2023 pregn wily test, urine HCG positi ve Not Available [place] [address], [place], [address], 08/08/2023 10:30:45 07/18/20 23 07/18/2023 US, obste tric, trans vagin al No observ ation record ed. [email or web address] [facility] [address], [place], [address], 07/18/2023 18:03:01 07/18/20 23 07/18/2023 US, obste tric, follo w-up No observ ation record ed. [facility] [address], [place], [address], 07/19/2023 14:34:16 07/30/20 23 07/30/2023 US, obste tric, follo w-up No observ ation record ed. [email or web address] [facility] [address], [place], [address], 07/30/2023 15:50:37 07/30/2007/30/2023 US, obste tric, follo w-up No observ ation record ed. [email or web address] [facility] [address], [place], [address], 08/20/2023 15:55:02 07/30/2007/30/2023 US, obste tric, follo w-up No observ ation record ed. [email or web address] [facility] [address], [place], [address], 07/30/2023 15:50:37 08/07/2008/07/2023 US, obste tric, follo w-up No observ ation record ed. [facility] [address], [place], [address], 08/08/2023 14:12:14 08/07/2008/07/2023 US, obste tric, follo w-up No observ ation record ed. [email or web address] [facility] [address], [place], [address], 08/08/2023 11:40:06 09/07/2009/07/2023 US, obste tric, follo w-up No observ ation record ed. [email or web address] [facility] [address], [place], [address], 09/11/2023 15:57:12 Result Notes None recorded. Procedures Surgical History Date Name Laterality Status Provider Name and Address Organization Details Recorded Time 01/02/20 Date of Last Pap Smear completed Makenzie Ramos [facility] 08/07/2023 15:16:32 09/28/20 22 excision of mass completed Daina Renee [facility] 01/01/2023 17:20:33 10/29/19 17 extraction of wisdom tooth completed Makenzie Ramos [facility] 08/08/2023 10:50:08 10/29/19 01 Tonsillectomy completed Makenzie Ramos [facility] 08/08/2023 10:49:49 Imaging Results Imaging Date Name Status LastModified by Organization Details LastModified Time 07/18/2023 US, obstetric, transvaginal completed eder [facility] [address], [place], [address], 07/18/2023 18:03:01 07/18/2023 US, obstetric, follow-up completed [facility] [address], [place], [address], 07/19/2023 14:34:16 07/30/2023 US, obstetric, follow-up completed [facility] [address], [place], [address], 07/30/2023 15:50:37 07/30/2023 US, obstetric, follow-up completed [facility] [address], [place], [address], 08/20/2023 15:55:02 07/30/2023 US, obstetric, follow-up completed [email or web address] [facility] [address], [place], [address], 07/30/2023 15:50:37 08/07/2023 US, obstetric, follow-up completed [email or web address] [facility] [address], [place], [address], 08/08/2023 14:12:14 08/07/2023 US, obstetric, follow-up completed [email or web address] [facility] [address], [place], [address], 08/08/2023 11:40:06 09/07/2023 US, obstetric, follow-up completed [email or web address] [facility] [address], [place], [address], 09/11/2023 15:57:12 Procedure Notes None recorded. Medical Equipment None Reported. Allergies Allergen ID Allergen Name Allergen Category Reaction Reaction Severity Criticality Documentation Date Start Date Code Code System Note Provider Name and Address Organization Details Recorded Time cat dander environme nt Not available Not available Not available 01/01/2023 23225 LUCIO echeverria [facility] 17:16:37 Medications Name Sig Start Date Stop Date Status Note LastModified by Organization Details LastModified Time metronidazo le 0.75 % (37.5 mg/5 gram) vaginal gel INSERT 1 APPLICATO RFUL VAGINALLY EVERY DAY AT BEDTIME FOR 5 NIGHTS 01/01 completed Not Available Not Available Not Available moxifloxaci n 400 mg tablet TAKE 1 TABLET BY MOUTH ONCE DAILY FOR 7 DAYS AFTER COMPLETIN G DOXYCYCLI NE FOR 7 DAYS 01/01 completed Not Available Not Available Not Available metronidazo le 500 mg tablet TAKE 1 TABLET BY MOUTH THREE TIMES DAILY 01/01 completed Not Available Not Available Not Available doxycycline monohydrate 100 mg tablet TAKE 1 TABLET BY MOUTH TWICE DAILY 01/01 completed Not Available Not Available Not Available docusate sodium 100 mg capsule TAKE 1 CAPSULE BY MOUTH TWICE A DAY NEEDED FOR CONSTIPAT ION 01/01 completed Not Available Not Available Not Available ibuprofen 600 mg tablet TAKE 1 TABLET BY MOUTH EVERY 6 HOURS NEEDED FOR CRAMPING FOR 14 DAYS 01/01 completed Not Available Not Available Not Available Lo Loestrin Fe 1 mg-10 mcg (24)/10 mcg (2) tablet TAKE 1 TABLET BY MOUTH ONCE DAILY 01/01 completed Not Available Not Available Not Available Slynd 4 mg (28) tablet Take 1 tablet every day by oral route. 08/07 completed [id number] 04/17 24 Not Available Not Available Not Available Vitals Date Recorded Body height Body mass index (BMI) Body weight Systolic blood pressure Diastolic blood pressure Provider Name and Address Organization Details Last Updated DateTime 01/01/2023 165.1 cm 31.9 kg/m2 35833.02 g 135 mm[Hg] 86 mm[Hg] Daina Renee [facility] 17:16:30 Date Recorded Body height Body mass index (BMI) Body weight Systolic blood pressure Diastolic blood pressure Provider Name and Address Organization Details Last Updated DateTime 08/08/2023 165.1 cm 34.6 kg/m2 99397.21 g 128 mm[Hg] 81 mm[Hg] Makenzie Ramos [facility] 10:20:47 Social History Question Answer Notes LastModified by Organizat ion Details LastModified Time Tobacco Smoking Status Former Smoker Makenzie Ramos [facility] 08/08/2023 10:49:32 What Is Your Level Of Alcohol Consumption? None [email or web address] Information not available 08/08/2023 If You Are , What Was Your Level Of Alcohol Consumption Prior To ? Occasional [email or web address] Information not available 08/08/2023 Are You Blind Or Do You Have Difficulty Seeing? No Information not available 01/01/2023 What Is Your Level Of Caffeine Consumption? Occasional [email or web address] Information not available 08/08/2023 In The 14 Days Before Symptom Onset, Have You Had Close Contact With A Laboratory-confir med COVID-19 While That Case Was Ill? No [email or web address] Information not available 08/08/2023 In The 14 Days Before Symptom Onset, Have You Had Close Contact With A Person Who Is Under Investigation For COVID-19 While That Person Was Ill? No [email or web address] Information not available 08/08/2023 Have You Been To An Area Known To Be High Risk For COVID-19? No [email or web address] Information not available 08/08/2023 Are You Deaf Or Do You Have Serious Difficulty Hearing? No Information not available 01/01/2023 What Type Of Diet Are You Following? REGULAR Information not available 01/01/2023 Do You Or Have You Ever Used E-cigarettes Or Vape? Former User Of Electronic Cigarettes [email or web address] Information not available 08/08/2023 Do You Use Your Seat Belt Or Car Seat Routinely? Yes [email or web address] Information not available 08/08/2023 Do You Have Smoke And Carbon Monoxide Detectors In Your Home? Yes [email or web address] Information not available 08/08/2023 Do You Feel Stressed (tense, Restless, Nervous, Or Anxious, Or Unable To Sleep At Night)? [id number] [email or web address] Information not available 08/08/2023 Do You Use Sunscreen Routinely? Yes [email or web address] Information not available 08/08/2023 Has Tobacco Cessation Counseling Been Provided? No [email or web address] Information not available 08/08/2023 Do You Or Have You Ever Used Any Other Forms Of Tobacco Or Nicotine? Yes [email or web address] Information not available 08/08/2023 Sex: Unknown Functional Status Question Answer Note LastModified by Organizat ion Details LastModified Time Do you have difficulty walking or climbing stairs? No Information not available 08/08/2023 Are you able to walk? [email or web address] Information not available 01/01/2023 Are you able to care for yourself? Yes [email or web address] Information not available 08/08/2023 Do you have difficulty dressing or bathing? No [email or web address] Information not available 08/08/2023 What is your exercise level? Occasional [email or web address] Information not available 08/08/2023 Mental Status None recorded. Family History Relationship Description Onset Age of this Age Resolved Age Notes LastModified by Organization Details LastModified Time Father No current problems or disability [email or web address] Not available 03/2023 17:19:04 Mother No current problems or disability [email or web address] Not available 03/2023 17:19:04 Medical History Condition Response Allergies (Food, seasonal, environmental ) N Other N Drug/Latex Allergies/Reactions N Blood Transfusion N Breast Cancer N Dermatologic Disorders N Lung Disease N Defects or Inherited Disease N Breast Problem N Gestational Diabetes N Hematologic disorders N Anesthesia Complications N History of STI N Deep Vein Thrombosis N Polycystic ovary syndrome N Anxiety Disorder N Autoimmune disease N Arthritis N Polyps N Infertility N Acid Reflux (GERD) N History of abnormal pap N Cancer N Varicosities N Stroke N Neurologic/Epilepsy N Endometriosis N High Cholesterol N Fibromyalgia N Headaches N Kidney Disease N Heart Problems N Thyroid Problems N Kidney or Bladder Problems N GI Problems N Eating Disorder N Anemia N Art (IVF or FET) N Psychiatric Illness N Ovarian Cancer N Diabetes N Pulmonary (TB, Asthma) N Hepatitis/Liver Disease N No Past Medical History N Eczema N Urinary Tract Infection N Abuse/Domestic Violence N Asthma N Trauma/Violence N Depression/ depression N Heart Disease N Pre-Eclampsia Y Hypertension N Osteoporosis N Thrombophilias N Gynecological History Statement/Question Response Abnormal Pap Yes Flow Moderate Date of LMP Was last menstrual period normal Y STIs/STDs Y HPV Vaccine Y Duration of Flow (days) 6 Current Control Method Age at First Child 22 Are cycles usually normal Y Sexually Active? Y Menses Monthly Y Age of first menstrual cycle 13 Date of Last Pap Smear 01/01/2023 Sexual Problems? N LMP Unknown Obstetrics History GPAL:G 2 P 1 0 1 1 Type Value Full Term 1 Spontaneous 1 Living 1 Total 2 Past Encounters Encounter ID Performer Location Encounter Start Date Encounter Closed Date Diagnosis/Indication Diagnosis SNOMED-CT Code Diagnosis ICD10 Code Diagnosis Note [id number] TIMOTHY Saldivar [place] [address] [address] 01/01/2023 16:58:53 01/01/2023 17:48:27 Gynecologic examination 72125618 Z01.419 Take Calcium with Vitamin D 1200mg daily if not receiving in daily diet. It is strongly advised to have an annual flu shot and up can obtain at most pharmacies . If you have not had a TDap shot in the last 10 years you should obtain one as well. Discussed with patient & provided with informatio n regarding Gardisil vaccine to prevent the 4 strains for HPV that cause cervical cancer if under age 26. Encourage safe sexual practices, to use condoms and limit partners if not already in a monogamous relationsh ip. Do monthly self breast exams. Have mammogram yearly or every other year depending on family history. BRCA testing is now available for patients with strong genetic history of female cancer. If interested contact the office. Engage in daily exercise of low impact aerobic exercise 45-60 minutes 4-5 times weekly. Avoid tobacco and illicit drugs as well as using moderation with alcohol intake less than 1-2 8 oz beverages daily. This lifestyle behavior pattern will lead to less health conditions and longer life span. If BMI greater than 25 weight watchers or dietary consult advised. Patient received above instructio ns, and questions have been answered. If you have any questions please call or respond to this email. Patient was made aware of the patient portal and may obtain a paper copy of today's plan if desired. WWEs/p vaginal delivery 09/16/22. Formula feedingBC - none. Desires BC. Discussed all control options in great detail. Pt would like to start POP. She is aware of the risks and benefits. Pt will start her pills on the first sunday following the start of her period. She is aware it is not effective for control the first month. She is also aware of the importance of taking at the same time every day. Encouraged use of condoms as the pill does not protect against STD's. Will return in 3 months for med check. Consent was read and signed. Pt verbalized understand ing.Slynd samples given x 3 monthsHx of abnormal pap 02/2022 at outside office, plan was to repeat pap after per patientPap done today. Records release signed and faxed.STI testing added to papBlood STI testing declinedRT C for med check in 3 months Contracept ion care management [id number] Z30.9 Venereal d isease screening 574801985 Z11.3 [id number] [facility] Ramirez, [facility] [address] [address] 08/08/2023 09:36:50 08/08/2023 12:00:53 Amenorrhea 78435991 N91.2 Health Concerns Section Related Observation LastModified by Organization Detai ls LastModified Time None Recorded Concern Status LastModified by Organization Details LastModified Time None Recorded Advance Directives Directive None Recorded Payers Encounter Date Sequence Insurance Name Policy Number Policy [place] Covered Member ID [place] Member ID Guarantor Name 01/01/2023 1 R [id number] Mabel Alanis [id number] Mabel Alanis 08/08/2023 1 UMR [id number] Mabel Krystle Alanis [id number] Mabel L Zeke Notes Date Note Type Note Provider Name and Address Organization Details Recorded Time 01/01/2023 text/html Annual GYNReport ed bypatient.Menstrual cycle:Normal menses Urinary symptoms:No hematuria; No incontinence Vulva:No genital lesion Vagina:Normal vaginal discharge Breast:No breast pain; No breast lump; No nipple discharge Current Contraception: control not practiced Sexual complaints:No sexual complaints; No pain during intercourse; Normal libido Menopausal Symptoms:No menopausal symptoms; Normal vaginal lubrication Psychological symptoms:No depression; No anxiety; No PMDD Preventive measures:Encourage self breast examination; Encourage regular exercise; Encourage no tobacco use; Encourage regular mammograms starting age 40 TIMOTHY Saldivar [address], [place], [address], [facility] 01/01/2023 17:40:02 08/08/2023 text/html amenorrhea +UPT, hx regular cycles,hx preeclampsia and delivered at 37 weeks last pregnancydoing wellmild anxietyno complaintspap up to date Caron Ramirez CNM [address], [place], [address], [facility] 08/08/2023 11:56:06 OBGyn Episode Ob Episode Information Episode Created Date Number of Fetuses Patient Bloodtype Patient rh Status Prepregnancy Weight lbs Domestic Partner Domestic Partner Phone Father Name Manufacturing Team Leader Status 01/02/20 23 1 CLOSED Fetus Data First Name Last Name Admitted to NICU Weight (g) Sex Living Outcome Pediatric Complications Fetus ID Race Codes Race Delivery Type 3373.36 3704 M Full Term [id number] Vaginal Delivery Ayden Calculation Initial Ayden Date Initial Exam Date Initial Exam Provider Initial Ultrasound Date Last Menstrual Period Date Ultra Sound Weeks Gestation 0 Eighteen To Twenty Week Ayden Update Ultra Sound Date Fundal Height At Umbil Quickening Date Ultra Sound Latest Weeks Gestation Final Ayden Confirmed By Final Ayden Confirmed Date Final Ayden Date Ultra Sound Latest Days Gestation 0 0 Menstrual History Last Menstrual Date Menses Monthly On Bcp Conception Prior Menses Frequency Hcg Plus Date Menarche Onset Age Delivery Information Delivery Date Delivery Type Labor Anesthesia Weeks Gestation Incision Type Labor Labor Length Hrs Delivered By Post Complications Tubal Sterilization Discharge Date Comments 2 37 Discharge Information Feeding Method Contraceptive Method Maternal HG B and HCT Levels Ob Episode Information Episode Created Date Number of Fetuses Patient Bloodtype Patient rh Status Prepregnancy Weight lbs Domestic Partner Domestic Partner Phone Father Name Manufacturing Team Leader Status 08/08/20 23 1 CLOSED Fetus Data First Name Last Name Admitted to NICU Weight (g) Sex Living Outcome Pediatric Complications Fetus ID Race Codes Race Delivery Type , Spontane ous [id number] Ayden Calculation Initial Ayden Date Initial Exam Date Initial Exam Provider Initial Ultrasound Date Last Menstrual Period Date Ultra Sound Weeks Gestation 0 Eighteen To Twenty Week Ayden Update Ultra Sound Date Fundal Height At Umbil Quickening Date Ultra Sound Latest Weeks Gestation Final Ayden Confirmed By Final Ayden Confirmed Date Final Ayden Date Ultra Sound Latest Days Gestation 0 0 Menstrual History Last Menstrual Date Menses Monthly On Bcp Conception Prior Menses Frequency Hcg Plus Date Menarche Onset Age Delivery Information Delivery Date Delivery Type Labor Anesthesia Weeks Gestation Incision Type Labor Labor Length Hrs Delivered By Post Complications Tubal Sterilization Discharge Date Comments 6 Discharge Information Feeding Method Contraceptive Method Maternal HG B and HCT Levels
--- OUTSIDE RECORDS SUMMARY | 2024-12-11 01:21 | XMS_ITS | Referral Summary ---
Author Organization [facility] Address [address] [place] [address] Care Team Providers Care Diagnostics Sales Developer Name Role Phone No, Physician Primary Care Provider [phone] Encounters Date Type Department Care Team Description 10/29/2024 7:33 PM WEB MERCHANT - 10/29/2024 8:53 PM WEB MERCHANT Emergency [facility] Emergency Department [address] [place], [place] [id number] Laceration of left hand, foreign body presence unspecified, initial encounter (Primary Dx) Discharge Disposition: Discharge to home or self care from Last 3 Months Allergies No known active allergies Social History Tobacco Use Types Packs/Day Years [...] on file Legal Sex Female 8:01 AM WEB MERCHANT Gender Identity Not on file Sexual Orientation Not on file Last Filed Vital Signs Vital Sign Reading Time Taken Comments Blood Pressure 155/104 10/29/2024 7:31 PM WEB MERCHANT Pulse 100 10/29/2024 7:31 PM WEB MERCHANT Temperature 36.7 C (98 F) 10/29/2024 7:31 PM WEB MERCHANT Respiratory Rate 14 10/29/2024 7:31 PM WEB MERCHANT Oxygen Saturation 99% 10/29/2024 7:31 PM WEB MERCHANT Inhaled Oxygen Concentration - - Weight 98.9 kg (218 lb) 10/29/2024 7:31 PM WEB MERCHANT Height 162.6 cm (5' 4 ) 08/18/2016 5:00 AM CDT Body Mass Index 37.42 08/18/2016 5:00 AM CDT Plan of Treatment Not on file Procedures Procedure Name Priority Date/Time Associated Diagnosis Comments ED LACERATION REPAIR Routine 10/29/2024 8:53 PM WEB MERCHANT from Last 3 Months Results * Laceration Repair (10/29/2024 8:53 PM WEB MERCHANT) Narrative Anjali Asencio PA - 10/29/2024 8:53 PM WEB MERCHANT Anjali Asencio PA 10/29/2024 8:54 PM Laceration [...] Final Result from Last 3 Months Insurance [employer] OPEN ACCESS Member Subscriber Plan / Payer (Ef fective 2024-Present) Name:Mabel Alanis Relation to Subscriber:Self Name:Mabel Alanis Payer ID:[id number] ([id number]) Type:[employer] HMO/PPO Address: [facility] [id number] [place] [address] [employer] OPEN ACCESS Care Teams Diagnostics Sales Developer Relationship Specialty Start Date End Date No, Physician PCP - General 10/29/24
[2024-12-11 10:39] VITALS: BP 123/89; PULSE 85; RESP 20; TEMP 36.8; O2SAT 100
[2024-12-11 10:44] LABS: BEDSIDEPREGUCG Negative (Negative)
[2024-12-11] MEDS: LACTATED RINGERS 1,000 ML 150 ML IV CONT (10:54)
--- NOTE | 2024-12-11 11:15 | WPDANESEPPF ---
Anes - Initial Pre Proc Eval Procedure: Operation Date: 12/11/24 11:00 Proposed Procedures p Colonoscopy - Andrew Toney MD Date/Time: 12/11/24 11:15 Surgeon: Andrew Toney MD Pre Op Diagnosis: Family Hx Colon Cancer Patient Data Age: 24 Gender: F Height: 1.63 m Weight: 94 kg Last Vital Signs Temp 36.8 C 12/11/24 10:39 Pulse 85 12/11/24 10:39 Resp 20 12/11/24 10:39 BP 123/89 12/11/24 10:39 Pulse Ox 100 12/11/24 10:39 O2 Del Method Room Air 12/11/24 10:39 Allergies Allergy/AdvReac Type Severity Reaction Status Date / Time cat dander Allergy Mild Itching Verified 12/11/24 10:35 Home Medications ?Medication ?Instructions ?Recorded ?Confirmed ?Type No Home Medications 09/18/24 11/27/24 History Laboratory Tests 12/11/24 10:39 POC Urine HCG, Qual Negative (Negative) Patient hx anesthesia problems: none Family hx anesthesia problems: none Results Review: All pre-operative results and documents have been reviewed as part of the pre-operative evaluation. [facility] Past Medical History Medical History Anemia Migraines and not yet delivered Pre-eclampsia Patient denies significant medical history Surgical History Surgical History [place] teeth removed History of tonsillectomy History of excision of mass excision 4 cm perianal subcutaneous mass 10/04/2022 Family History Family History Mother Hard of hearing Grandparent Lung cancer maternal grandmother Colon cancer Social History Social History Smoking status: Current every day smoker Tobacco type: e-cigarettes/vaping Second hand tobacco smoke exposure: No Smoking end date: 07/17/23 Additional smoking assessment comments: vaped in past Alcohol intake: current Substance use: never Substance use type: does not use Do You Feel Safe in your Home?: Yes Lack of Transportation: No Lack of Food: Never True Current Housing: I Have Housing Concerned About Future Housing: No Difficulty Paying Gas/Electric Bills: No Difficulty Paying for Meds: No Currently Unemployed: No Education: High School Diploma/GED Difficulty w/ Childcare or Family Care: No Living arrangements: with family Additional living arrangements comments: Engaged Occupation/Education: other 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 Gender identity (if verbalized by the patient): Female Sexual Orientation (if Verbalized by the Patient): Straight or Heterosexual Spiritual care concerns: No Anes - Eval Final PreProcedure Day of Procedure 12/11/24 11:15 Patient weight: overweight Heart: regular rate and rhythm Lungs: clear to auscultation Airway: Mallampati scale class II Neurological: alert and oriented Last oral intake: >/= 8 hours ASA classification: II Emergent: no Anesthetic plan: proceed Anesthesia type and monitoring: general GIVS and standard monitoring Results Review: All pre-operative results and documents have been reviewed as part of the pre-operative evaluation. Informed Consent: The patient's anesthetic plan and its attendant risks and benefits were discussed with the patient/family/POA. Questions were solicited and answers provided to the satisfaction of the patient/family/POA.
--- NOTE | 2024-12-11 11:49 | PM.IMHP ---
H&P: HPI History of Present Illness Date/Time: 12/11/24 11:49 Chief Complaint: Change in bowel habits -family history of colorectal cancer. Narrative: This patient has been experiencing intermittent abdominal pain with constipation for the past few months. In addition, her grandmother had colorectal cancer. She is referred for colonoscopy. There is no rectal bleeding or weight loss. Review of Systems Review of Systems: All systems reviewed & are unremarkable except as noted in HPI and below PMFSH Past Medical History Medical History Anemia Migraines and not yet delivered Pre-eclampsia Patient denies significant medical history Surgical History Surgical History [place] teeth removed History of tonsillectomy History of excision of mass excision 4 cm perianal subcutaneous mass 10/04/2022 Family History Family History Mother Hard of hearing Grandparent Lung cancer maternal grandmother Colon cancer Social History Social History Smoking status: Current every day smoker Tobacco type: e-cigarettes/vaping Second hand tobacco smoke exposure: No Smoking end date: 07/17/23 Additional smoking assessment comments: vaped in past Alcohol intake: current Substance use: never Substance use type: does not use Do You Feel Safe in your Home?: Yes Lack of Transportation: No Lack of Food: Never True Current Housing: I Have Housing Concerned About Future Housing: No Difficulty Paying Gas/Electric Bills: No Difficulty Paying for Meds: No Currently Unemployed: No Education: High School Diploma/GED Difficulty w/ Childcare or Family Care: No Living arrangements: with family Additional living arrangements comments: Engaged Occupation/Education: other 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 Gender identity (if verbalized by the patient): Female Sexual Orientation (if Verbalized by the Patient): Straight or Heterosexual Spiritual care concerns: No Meds Home Medications and Allergies Home Medications ?Medication ?Instructions ?Recorded ?Confirmed ?Type No Home Medications 09/18/24 11/27/24 History Allergies Allergy/AdvReac Type Severity Reaction Status Date / Time cat dander Allergy Mild Itching Verified 12/11/24 10:35 Vital Signs Vital Signs - 24 hr 12/11/24 10:39 Temperature 98.3 F Pulse Rate 85 Respiratory Rate 20 Blood Pressure 123/89 Pulse Oximetry 100 Oxygen Delivery Room Air Exam Const: General: cooperative and healthy appearing Resp: Effort & Inspection: normal respiratory effort and able to speak in complete sentences Auscultation: clear to auscultation bilaterally Cardio: Rate: regular rate Rhythm: regular rhythm GI: Inspection: normal to inspection GI Palp: No No hepatosplenomegaly present Auscultation: normal bowel sounds Rectal Exam: deferred Skin: General skin exam: normal color Psych: Appearance: grossly normal Mental Status: mental status grossly normal Assessment and Plan Assessment and plan (1) Family history of colon cancer: Code(s): Z80.0 - Family history of malignant neoplasm of digestive organs Status: Acute Assessment and Plan: The patient is deemed a good candidate for the procedure. Consent signed. Will proceed.
[2024-12-11 12:13] VITALS: BP 148/112; PULSE 92; RESP 26; O2SAT 98
[2024-12-11 12:23] VITALS: BP 101/66; PULSE 80; RESP 20; O2SAT 97
[2024-12-11 12:33] VITALS: BP 108/71; PULSE 72; RESP 28; O2SAT 98
== END 2024-12-11 12:43 | disposition home or self-care (01) ==
PROVIDERS: Anesthesiology; PCP Family Medicine; Referring Provider Obstetrics & Gynecology; Visit Provider Internal Medicine Gastroenterology
PROC: 0DJD8ZZ Inspection of Lower Intestinal Tract, Via Natural or Artificial Opening Endoscopic (ICD-10-PCS; CPT 45378; principal; 2024-12-11 11:00)
DX: K63.5 Polyp of colon (principal); D64.9 Anemia, unspecified; F17.290 Nicotine dependence, other tobacco product, uncomplicated; Z98.890 Other specified postprocedural states; Z80.1 Family history of malignant neoplasm of trachea, bronchus and lung; Z80.0 Family history of malignant neoplasm of digestive organs
CPT/HCPCS: 45380; 88305; J2003; J2704; J7120